=== PATIENT | female | born 1985 | race Caucasian/White ===

== ENCOUNTER 2017-04-19 11:39 | Emergency (ER) | payer BC, MEDICAID ==
[2017-04-19 11:46] VITALS: BP 129/99
[2017-04-19] MEDS ORDERED: Sodium Chloride 0.9% 1,000 ML IV ONE (12:18)
[2017-04-19] MEDS ORDERED: Sodium Chloride 0.9% 10 ML Syringe FLUSH PRN (12:19)
[2017-04-19] MEDS ORDERED: Ondansetron 4 MG/2 ML SDV IVPUSH ONE (12:19)
[2017-04-19] MEDS ORDERED: Iopamidol 612 MG/ML 150 ML Bottle IVPUSH ONE (12:24)
[2017-04-19] MEDS ORDERED: Sodium Chloride 0.9% 10 ML Syringe FLUSH ONE (12:24)
[2017-04-19] MEDS ORDERED: Diatrizoate Meglumine/Diatrizoate Sodium 37% 120 ML Bottle PO ONE (12:24)
--- NOTE | 2017-04-19 12:28 | EDM.PDOC ---
ED HPI GENERAL MEDICAL PROBLEM - General Chief Complaint: Genitourinary Problem Stated Complaint: POSS. UTI Time Seen by Provider: 04/19/17 12:22 Source of Information: Reports: Patient History Limitations: Reports: No Limitations - History of Present Illness INITIAL COMMENTS - FREE TEXT/NARRATIVE: 32-year-old female presents for evaluation and treatment of a possible urinary tract infection. Patient reports she has been feeling ill since March 31. Current symptoms include feeling feverish, decreased appetite, nausea, malaise, constipation and abdominal pain. Patient reports that her entire abdomen is involved and states it goes from her upper abdomen down into her vagina. She states that she has felt feverish and chilled but has not taken her temperature. Reports the nausea is worse with laying flat. Patient reports that she saw her primary care provider, Kayce Gamble, recently. She was placed on a seven-day course of Macrobid. She took this to completion. She states she had trouble urinating while on the Macrobid. Patient has an extensive past medical history of kidney problems, chronic regional pain syndrome and problems with her neck, back, shoulders and hips. She was seeing Dr. Marvin urology for her kidney problems. She has now since been seeing Dr. Palafox. Next visit in April 2016. Abdomen Pain Score (Numeric/FACES): 6 - Related Data Allergies Allergy/AdvReac Type Severity Reaction Status Date / Time diphenhydramine HCl Allergy Other Verified 08/10/15 16:33 [From Benadryl] orphenadrine Allergy Other Verified 08/10/15 16:33 propoxyphene napsylate Allergy Other Verified 08/10/15 16:33 [From Darvocet-N] valdecoxib Allergy Other Verified 08/10/15 16:33 acetaminophen AdvReac Other Verified 08/10/15 16:33 [From Darvocet-N] Home Meds: Home Meds Lidocaine 0.5% [Xylocaine-MPF 0.5%] 2 applic PO DAILY 04/19/17 [History] Past Medical History Cardiovascular History: Reports: Other (See Below) Other Cardiovascular History: history of mitral valve issues, chest pain 16 years ago. 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 [employer]LEY [employer]Y History: Reports: Musculoskeletal History: Reports: Other (See Below) Other Musculoskeletal History: CRPS Other Neuro History: tremors with anesthesia Psychiatric History: Reports: Anxiety Hematologic History: Reports: Blood Transfusion(s) Other Hematologic History: blood transfusion 14 years ago due to retained placenta - Past Surgical History HEENT Surgical History: Reports: Tonsillectomy Female Surgical History: Reports: Tubal Ligation, Ureteral Stent Musculoskeletal Surgical History: Reports: Arthroscopic Knee Social & Family History - Tobacco Use Smoking Status *Q: Current Every Day Smoker Years of Tobacco use: 17 Packs/Tins Daily: 0.5 Second Hand Smoke Exposure: No - Caffeine Use Caffeine Use: Reports: Coffee, Soda, Tea - Alcohol Use Days Per Week of Alcohol Use: 0 Number of Drinks Per Day: 0 Total Drinks Per Week: 0 - Recreational Drug Use Recreational Drug Use: No - Living Situation & Occupation Living situation: Reports: , with Family ED ROS GENERAL - Review of Systems Review Of Systems: See Below Constitutional: Reports: Fever, Chills, Malaise, Decreased Appetite GI/Abdominal: Reports: Abdominal Pain (entire abdomen), Constipation, Nausea. Denies: Diarrhea, Vomiting : Denies: Dysuria, Hematuria Musculoskeletal: Reports: Neck Pain (chronic), Shoulder Pain (chronic), Back Pain (chronic), Other (hip pain chronic) ED EXAM, RENAL/ - Physical Exam Exam: See Below Exam Limited By: No Limitations General Appearance: Alert, WD/WN, No Apparent Distress Ears: Normal External Exam Nose: Normal Inspection Throat/Mouth: Normal Inspection, Normal Lips, Normal Voice, No Airway Compromise Respiratory/Chest: No Respiratory Distress, Lungs Clear, Normal Breath Sounds Cardiovascular: Normal Peripheral Pulses, Regular Rate, Rhythm, No Murmur GI/Abdominal: Normal Bowel Sounds, Soft, Non-Tender, No Organomegaly, No Distention Neurological: Alert, Oriented, Normal Cognition Psychiatric: Normal Mood, Flat Affect Skin Exam: Warm, Dry, Normal Color Course - Vital Signs Last Recorded V/S: Last Vital Signs Temp 37.7 C 04/19/17 11:43 Pulse 118 H 04/19/17 11:43 Resp 20 04/19/17 11:43 BP 129/99 H 04/19/17 11:43 Pulse Ox 99 04/19/17 11:43 - Orders/Labs/Meds Labs: Laboratory Tests 04/19/17 04/19/17 04/19/17 Range/Units 12:40 12:40 12:40 WBC 5.75 (3.98-10.04) K/mm3 RBC 5.06 (3.98-5.22) M/mm3 Hgb 15.0 (11.2-15.7) gm/L Hct 45.7 H (34.1-44.9) % MCV 90.3 (79.4-94.8) fl MCH 29.6 (25.6-32.2) pg MCHC 32.8 (32.2-35.5) g/dl RDW Std Deviation 42.7 (36.4-46.3) fL Plt Count 290 (182-369) K/mm3 MPV 10.0 (9.4-12.3) fl Neutrophils % (Manual) 50 (40-60) % Band Neutrophils % 0 (0-10) % Lymphocytes % (Manual) 46 H (20-40) % Atypical Lymphs % 0 % Monocytes % (Manual) 4 (2-10) % Eosinophils % (Manual) 0 L (0.7-5.8) % Basophils % (Manual) 0 L (0.1-1.2) Platelet Estimate Adequate RBC Morph Comment Normal Sodium 140 (136-145) mEq/L Potassium 3.6 (3.5-5.1) mEq/L Chloride 104 (98-107) mEq/L Carbon Dioxide 27 (21-32) mEq/L Anion Gap 12.6 (5-15) BUN 10 (7-18) mg/dL Creatinine 0.9 (0.55-1.02) mg/dL Est Cr Clr Drug Dosing 85.65 mL/min Estimated GFR (MDRD) > 60 (>60) mL/min BUN/Creatinine Ratio 11.1 L (14-18) Glucose 99 (74-106) mg/dL Calcium 9.3 (8.5-10.1) mg/dL Total Bilirubin 0.6 (0.2-1.0) mg/dL AST 18 (15-37) U/L ALT 28 (14-59) U/L Alkaline Phosphatase 55 (46-116) U/L C-Reactive Protein < 0.2 (<1.0) mg/dL Total Protein 7.5 (6.4-8.2) g/dl Albumin 4.3 (3.4-5.0) g/dl Globulin 3.2 gm/dL Albumin/Globulin Ratio 1.3 (1-2) Lipase 181 (73-393) U/L Urine Color Yellow (Yellow) Urine Appearance Clear (Clear) Urine pH 6.5 (5.0-8.0) Ur Specific [place] 1.020 (1.005-1.030) Urine Protein Negative (Negative) Urine Glucose (UA) Negative (Negative) Urine Ketones Negative (Negative) Urine Occult Blood Negative (Negative) Urine Nitrite Negative (Negative) Urine Bilirubin Negative (Negative) Urine Urobilinogen 0.2 (0.2-1.0) Ur Leukocyte Esterase Trace H (Negative) Urine RBC Not seen (0-5) /hpf Urine WBC 0-5 (0-5) /hpf Ur Epithelial Cells 0-5 (0-5) /hpf Urine Bacteria Few (FEW) /hpf Urine Mucus Few (FEW) /hpf Meds: Medications Discontinued Medications Generic Name Dose Route Start Last Admin Trade Name Dinhq PRN Reason Stop Dose Admin Diatrizoate Meglum/Diatrizoate Sod 90 ml 04/19/17 12:24 04/19/17 13:35 Gastrografin 37% PO 04/19/17 12:25 90 ml ONETIME ONE Administration Sodium Chloride 1,000 mls @ 999 mls/hr 04/19/17 12:18 04/19/17 12:43 Normal Saline IV 04/19/17 13:18 999 mls/hr ONETIME ONE Administration Iopamidol 125 ml 04/19/17 12:24 04/19/17 13:35 Isovue-300 (61%) IVPUSH 04/19/17 12:25 125 ml ONETIME ONE Administration Ondansetron HCl 4 mg 04/19/17 12:19 04/19/17 12:43 Zofran IVPUSH 04/19/17 12:20 4 mg ONETIME ONE Administration Sodium Chloride 10 ml 04/19/17 12:19 04/19/17 13:35 Saline Flush FLUSH 10 ml ASDIRECTED PRN Administration Keep Vein Open Sodium Chloride 10 ml 04/19/17 12:24 04/19/17 12:44 Saline Flush FLUSH 04/19/17 12:25 10 ml ONETIME ONE Administration - Radiology Interpretation Free Text/Narrative:: CT abdomen and pelvis Technique: Multiple axial sections were obtained from above the dome of the diaphragm inferiorly through the pubic symphysis. Intravenous and oral contrast was utilized. Delayed images were obtained through the bladder. Comparison: Prior CT abdomen and pelvis exam of 05/31/15 which was performed as a hematuria protocol study. Findings: Visualized lung bases are clear. Liver shows no focal parenchymal abnormality. Spleen appears within normal limits. Adrenal glands show no nodule. Kidneys show symmetric contrast enhancement without hydronephrosis or mass. Pancreas appears within normal limits. Aorta shows no aneurysmal dilatation. No retroperitoneal adenopathy or mesenteric abnormalities are seen. Gallbladder shows no calcified gallstones. Appendix is seen which is normal. No pelvic mass or adenopathy is seen. Delayed images shows contrast within the bladder. Slight increased stool is noted within the colon. No bowel dilatation is seen. No free fluid or inflammatory change is seen. Bone window settings were reviewed which appear within normal limits for the patient's age. Impression: 1. Slight increased stool within the colon. 2. Other normal findings as noted above. - Re-Assessments/Exams Free Text/Narrative Re-Assessment/Exam: 04/19/17 15:00 I reviewed the labs and CT results with the patient. Given her pain extends into her vagina I offered a pelvic exam and STD testing, patient declined. She was offered pain medication throughout her ER stay and she declined. I will discharge her home at this time. Discharge instructions as documented. Departure - Departure Time of Disposition: 15:02 Disposition: Home, Self-Care 01 Condition: Fair Clinical Impression: Constipation Qualifiers: Constipation type: slow transit constipation Qualified Code(s): K59.01 - Slow transit constipation - Discharge Information Instructions: Constipation, Adult Referrals: Cat Gamble STILL [facility]NER [Primary Care Provider] - Forms: ED Department Discharge Additional Instructions: Rx for topical phenergran to be filled at [facility],. make sure you are drinking plenty of fluids. If you do not have a large bowel movement from the contrast, purchased a bottle make citrate. These are available [id number]. Drink half the bottle. If you do not have results drink the second half the bottle about 12 hours later. Recommend starting [id number] probiotic daily. Recommended starting MiraLAX daily. Follow-up with your primary care provider for recheck of your symptoms next week. Please return to the ER if her symptoms change or worsen.
--- NOTE | 2017-04-19 14:06 | CT ---
CT abdomen and pelvis Technique: Multiple axial sections were obtained from above the dome of the diaphragm inferiorly through the pubic symphysis. Intravenous and oral contrast was utilized. Delayed images were obtained through the bladder. Comparison: Prior CT abdomen and pelvis exam of 05/31/15 which was performed as a hematuria protocol study. Findings: Visualized lung bases are clear. Liver shows no focal parenchymal abnormality. Spleen appears within normal limits. Adrenal glands show no nodule. Kidneys show symmetric contrast enhancement without hydronephrosis or mass. Pancreas appears within normal limits. Aorta shows no aneurysmal dilatation. No retroperitoneal adenopathy or mesenteric abnormalities are seen. Gallbladder shows no calcified gallstones. Appendix is seen which is normal. No pelvic mass or adenopathy is seen. Delayed images shows contrast within the bladder. Slight increased stool is noted within the colon. No bowel dilatation is seen. No free fluid or inflammatory change is seen. Bone window settings were reviewed which appear within normal limits for the patient's age. Impression: 1. Slight increased stool within the colon. 2. Other normal findings as noted above. Diagnostic code #2
== END 2017-04-19 15:15 | disposition home or self-care (01) ==
LOC: JD.ED 11:39
DX: K59.01 Slow transit constipation (principal); Z88.6 Allergy status to analgesic agent; Z88.8 Allergy status to other drugs, medicaments and biological substances; Z87.440 Personal history of urinary (tract) infections
CPT/HCPCS: 36415; 74177; 80053; 81001; 83690; 85025; 86140; 87086; 96361; 96374; 99284; J2405; J7040; J7050; Q9963; Q9967

== ENCOUNTER 2018-07-31 20:29 | Emergency (ER) | payer BC, MEDICAID ==
[2018-07-31 20:44] VITALS: BP 138/99
[2018-07-31] MEDS ORDERED: Lidocaine 1% 10 ML MDV INJECT ONE (20:58)
--- NOTE | 2018-07-31 21:36 | EDM.PDOC ---
ED HPI GENERAL MEDICAL PROBLEM - General Chief Complaint: Laceration Stated Complaint: HAND LACERATION RIGHT HAND Time Seen by Provider: 07/31/18 20:55 Source of Information: Reports: Patient History Limitations: Reports: No Limitations - History of Present Illness INITIAL COMMENTS - FREE TEXT/NARRATIVE: The patient presents with a laceration to the right hand. She was using an apple corer and it broke and she got cut at the base of her right thumb. She has pain but she has good sensation and capillary refill. She has good tendon strength. Onset: Sudden Duration: Minutes: Location: Reports: Upper Extremity, Right (hand) Quality: Reports: Sharp Severity: Moderate Improves with: Reports: Immobilization Worsens with: Reports: Movement Context: Reports: Trauma (cut by an apple corer) Associated Symptoms: Reports: No Other Symptoms Right Hand Pain Score (Numeric/FACES): 6 - Related Data Allergies Allergy/AdvReac Type Severity Reaction Status Date / Time diphenhydramine HCl Allergy Other Verified 08/10/15 16:33 [From Benadryl] orphenadrine Allergy Other Verified 08/10/15 16:33 propoxyphene napsylate Allergy Other Verified 08/10/15 16:33 [From Darvocet-N] valdecoxib Allergy Other Verified 08/10/15 16:33 acetaminophen AdvReac Other Verified 08/10/15 16:33 [From Darvocet-N] Home Meds: Home Meds Lidocaine [Lidoderm] 5 percent TRDERM DAILY 07/31/18 [History] Past Medical History Cardiovascular History: Reports: Other (See Below) Other Cardiovascular History: history of mitral valve issues, chest pain 16 years ago. 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 [employer] TE[employer]ER History: Reports: Musculoskeletal History: Reports: Other (See Below) Other Musculoskeletal History: CRPS Other Neuro History: tremors with anesthesia Psychiatric History: Reports: Anxiety Hematologic History: Reports: Blood Transfusion(s) Other Hematologic History: blood transfusion 14 years ago due to retained placenta - Past Surgical History HEENT Surgical History: Reports: Tonsillectomy Female Surgical History: Reports: Tubal Ligation, Ureteral Stent Musculoskeletal Surgical History: Reports: Arthroscopic Knee Social & Family History - Tobacco Use Smoking Status *Q: Current Every Day Smoker Years of Tobacco use: 21 Packs/Tins Daily: 0.5 - Caffeine Use Caffeine Use: Reports: Soda - Recreational Drug Use Recreational Drug Use: No - Living Situation & Occupation Living situation: Reports: , with Family ED ROS GENERAL - Review of Systems Review Of Systems: See Below Constitutional: Reports: No Symptoms HEENT: Reports: No Symptoms Respiratory: Reports: No Symptoms Cardiovascular: Reports: No Symptoms Endocrine: Reports: No Symptoms GI/Abdominal: Reports: No Symptoms : Reports: No Symptoms Musculoskeletal: Reports: Other (2cm laceration to the right hand at the base of the thumb) ED EXAM, SKIN/RASH Exam: See Below Exam Limited By: No Limitations General Appearance: Alert, No Apparent Distress Ears: Normal External Exam Nose: Normal Inspection Head: Atraumatic, Normocephalic Neck: Normal Inspection Respiratory/Chest: No Respiratory Distress Extremities: Other (2cm laceration of the right hand at the base of the right thumb. Good sensation and capillary refill distally.) ED SKIN PROCEDURES - Laceration/Wound Repair Right Hand Lac/Wound length In cm: 2 Appearance: Superficial, Linear Distal NVT: Neuro & Vascular Intact, No Tendon Injury Anesthetic Type: Local Local Anesthesia - Lidocaine (Xylocaine): 1% Plain Local Anesthetic Volume: 3cc Exploration/Debridement/Repair: Wound Explored, In a Bloodless Field, Explored to Base Closed with: Sutures Suture Size: 4-0 # of Sutures: 3 Suture Type: Nylon, Interrupted, Simple Tetanus Status Addressed: Yes Complications: No Course - Vital Signs Last Recorded V/S: Last Vital Signs Temp 97.7 F 07/31/18 20:40 Pulse 82 07/31/18 20:40 Resp 16 07/31/18 20:40 BP 138/99 H 07/31/18 20:40 Pulse Ox 98 07/31/18 20:40 - Orders/Labs/Meds Meds: Medications Discontinued Medications Generic Name Dose Route Start Last Admin Trade Name Freq PRN Reason Stop Dose Admin Lidocaine HCl 10 ml 07/31/18 20:58 07/31/18 21:05 Xylocaine 1% INJECT 07/31/18 20:59 10 ml ONETIME ONE Administration - Re-Assessments/Exams Free Text/Narrative Re-Assessment/Exam: 07/31/18 21:38 I sutured the laceration closed. 07/31/18 21:40 The patient does not think her tetanus is up to date and she does not want one. Departure - Departure Time of Disposition: 21:45 Disposition: Home, Self-Care 01 Condition: Good Clinical Impression: Laceration of right hand Qualifiers: Encounter type: initial encounter Foreign body presence: without foreign body Qualified Code(s): S61.411A - Laceration without foreign body of right hand, initial encounter - Discharge Information *PRESCRIPTION DRUG MONITORING PROGRAM REVIEWED*: Not Applicable *COPY OF PRESCRIPTION DRUG MONITORING REPORT IN PATIENT JOYCE: Not Applicable Referrals: Eleanor Roman PA-C [Primary Care Provider] - Forms: ED Department Discharge Additional Instructions: Soak your hand in warm soapy water 2 times per day and apply antibiotic after. Have the sutures removed in 1 week. Look for any signs of infection such as redness, swelling, more pain or drainage. Please return or see your doctor if you see any of these signs. You could have an infection.
== END 2018-07-31 21:48 | disposition home or self-care (01) ==
LOC: JD.ED 20:29
DX: S61.411A Laceration without foreign body of right hand, initial encounter (principal); F17.210 Nicotine dependence, cigarettes, uncomplicated; Z88.8 Allergy status to other drugs, medicaments and biological substances; W26.8XXA Contact with other sharp object(s), not elsewhere classified, initial encounter
CPT/HCPCS: 12001; 99282; J2001

== ENCOUNTER 2019-05-11 19:43 | Emergency (ER) | payer BC, MEDICAID ==
[2019-05-11 19:55] VITALS: BP 142/101; PULSE 111
[2019-05-11] MEDS ORDERED: Sodium Chloride 0.9% 10 ML Syringe FLUSH PRN (19:58)
--- NOTE | 2019-05-11 20:12 | EDM.PDOC ---
ED HPI GENERAL MEDICAL PROBLEM - General Chief Complaint: Genitourinary Problem Stated Complaint: POSS KIDNEY PROBLEM Time Seen by Provider: 05/11/19 19:51 Source of Information: Reports: Patient, RN Notes Reviewed History Limitations: Reports: No Limitations - History of Present Illness INITIAL COMMENTS - FREE TEXT/NARRATIVE: Patient is a 34-year-old female who presents to the ED for the evaluation of left kidney pain. Patient notes she has been dealing with a viral upper respiratory illness for a few weeks, she states that symptoms started right around [place] time. She notes a fever, body aches, cough being present. She states that these initially got a little bit better, however she also developed some kidney pain, she states that this started bothering her around 2 weeks ago and now she states that whenever she coughs she pees a little bit. She is having increased nausea as well, with not a great appetite. She states that she ate maybe 6 peanut butter crackers today. 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 She has been taking some vitamin C and other herbal supplements for management however this is not provided much relief. Patient does note a history of asthma as well. Left Flank Pain Score (Numeric/FACES): 9 - Related Data Allergies Allergy/AdvReac Type Severity Reaction Status Date / Time diphenhydramine HCl Allergy Other Verified 05/11/19 19:53 [From Benadryl] orphenadrine Allergy Other Verified 05/11/19 19:53 propoxyphene napsylate Allergy Other Verified 05/11/19 19:53 [From Darvocet-N] valdecoxib Allergy Other Verified 05/11/19 19:53 acetaminophen AdvReac Other Verified 05/11/19 19:53 [From Darvocet-N] Home Meds: Home Meds D-Methorphan/PE/Acetaminophen [Day Time Cold-Flu Softgel] 1 each PO ASDIRECTED 05/11/19 [History] Fluconazole [Diflucan] 150 mg PO ONETIME #1 tab 05/11/19 [Rx] Levofloxacin 750 mg PO DAILY #10 tablet 05/11/19 [Rx] Past Medical History HEENT History: Reports: Impaired Vision Other HEENT History: Wears glasses Cardiovascular History: Reports: Other (See Below) Other Cardiovascular History: history of mitral valve issues, chest pain 16 years ago. 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: Musculoskeletal History: Reports: Other (See Below) Other Musculoskeletal History: CRPS Neurological History: Reports: Concussion, Seizure Other Neuro History: tremors with anesthesia Psychiatric History: Reports: Anxiety Hematologic History: Reports: Blood Transfusion(s) Other Hematologic History: blood transfusion 14 years ago due to retained placenta - Past Surgical History HEENT Surgical History: Reports: Tonsillectomy GI Surgical History: Reports: Colonoscopy, Polypectomy Female Surgical History: Reports: Tubal Ligation, Ureteral Stent Musculoskeletal Surgical History: Reports: Arthroscopic Knee, Shoulder Surgery Social & Family History - Tobacco Use Smoking Status *Q: Current Every Day Smoker Years of Tobacco use: 15 Packs/Tins Daily: 0.5 - Caffeine Use Caffeine Use: Reports: Soda - Recreational Drug Use Recreational Drug Use: No - Living Situation & Occupation Living situation: Reports: , with Family ED ROS GENERAL - Review of Systems Review Of Systems: See Below Constitutional: Reports: Fever, Chills, Malaise, Decreased Appetite Respiratory: Reports: Cough. Denies: Shortness of Breath, Sputum Cardiovascular: Denies: Chest Pain GI/Abdominal: Reports: Nausea. Denies: Abdominal Pain, Constipation, Diarrhea, Vomiting : Reports: Flank Pain (Left side kidney pain), Frequency, Incontinence, Urgency. Denies: Discharge, Dysuria ED EXAM, RENAL/ - Physical Exam Exam: See Below Exam Limited By: No Limitations General Appearance: Alert, WD/WN, No Apparent Distress Eye Exam: Bilateral Eye: EOMI, Normal Inspection, PERRL Ears: Normal External Exam Nose: Normal Inspection Throat/Mouth: Normal Inspection, Normal Lips, Normal Teeth, Normal Gums, Normal Oropharynx, Normal Voice, No Airway Compromise Head: Atraumatic, Normocephalic Neck: Normal Inspection Respiratory/Chest: No Respiratory Distress, Lungs Clear, No Accessory Muscle Use , Chest Non-Tender, Decreased Breath Sounds (diffuse bilaterally), Prolonged Expiration Cardiovascular: Regular Rate, Rhythm, No Murmur GI/Abdominal: Normal Bowel Sounds, Soft, Non-Tender, No Distention, No Mass Extremities: Normal Inspection, Normal Capillary Refill Neurological: Alert, Oriented, Normal Cognition, No Motor/Sensory Deficits Psychiatric: Normal Affect, Normal Mood Skin Exam: Warm, Dry, Intact, Normal Color, No Rash EKG INTERPRETATION EKG Date: 05/11/19 Time: 21:24 Rhythm: NSR Rate (Beats/Min): 83 [place]rens: Normal P-Wave: Present QRS: Normal ST-T: Normal QT: Normal Comparison: NA - No Prior EKG EKG Interpretation Comments: Reviewed with Dr. Molina, no acute ischemic change noted. Course - Vital Signs Last Recorded V/S: Last Vital Signs Temp 100.5 F 05/11/19 19:54 Pulse 111 H 05/11/19 19:54 Resp 18 05/11/19 19:54 BP 142/101 H 05/11/19 19:54 Pulse Ox 97 05/11/19 19:54 - Orders/Labs/Meds Orders: Active Orders 24 hr Category Date Time Status EKG Documentation Completion [RC] STAT Care 05/11/19 21:07 Ordered Peripheral IV Care [RC] . DIRECTED Care 05/11/19 19:58 Ordered Abdomen Pelvis wo Cont [CT] Stat Exams 05/11/19 21:06 Ordered CULTURE URINE [RM] Routine Lab 05/11/19 19:59 Stop Req Potassium Chloride [KCl 10 MEQ in Water 100 ML] 10 meq Med 05/11/19 21:15 Ordered Premix Bag 1 bag IV Q1H Sodium Chloride 0.9% [Saline Flush] Med 05/11/19 19:58 Ordered 10 ml FLUSH ASDIRECTED PRN Peripheral IV Insertion Adult [OM.PC] Stat Oth 05/11/19 19:58 Ordered Medication Orders Potassium Chloride 10 meq/ (Premix) 100 mls @ 100 mls/hr IV Q1H CHUY Stop: 05/12/19 01:14 Sodium Chloride (Saline Flush) 10 ml FLUSH ASDIRECTED PRN PRN Reason: Keep Vein Open Last Admin: 05/11/19 20:47 Dose: 10 ml Labs: Laboratory Tests 05/11/19 05/11/19 05/11/19 Range/Units 19:59 20:24 20:24 WBC 14.80 H (3.98-10.04) K/mm3 RBC 4.33 (3.98-5.22) M/mm3 Hgb 12.8 D (11.2-15.7) gm/dl Hct 38.1 (34.1-44.9) % MCV 88.0 (79.4-94.8) fl MCH 29.6 (25.6-32.2) pg MCHC 33.6 (32.2-35.5) g/dl RDW Std Deviation 41.2 (36.4-46.3) fL Plt Count 336 (182-369) K/mm3 MPV 10.4 (9.4-12.3) fl Neutrophils % (Manual) 71 H (40-60) % Band Neutrophils % 0 (0-10) % Lymphocytes % (Manual) 17 L (20-40) % Atypical Lymphs % 0 % Monocytes % (Manual) 10 (2-10) % Eosinophils % (Manual) 0 L (0.7-5.8) % Basophils % (Manual) 2 H (0.1-1.2) Platelet Estimate Adequate RBC Morph Comment Normal Sodium 141 (136-145) mEq/L Potassium 2.4 L* (3.5-5.1) mEq/L Chloride 101 (98-107) mEq/L Carbon Dioxide 27 (21-32) mEq/L Anion Gap 15.4 H (5-15) BUN 5 L (7-18) mg/dL Creatinine 0.9 (0.55-1.02) mg/dL Est Cr Clr Drug Dosing 83.25 mL/min Estimated GFR (MDRD) > 60 (>60) mL/min BUN/Creatinine Ratio 5.6 L (14-18) Glucose 104 (74-106) mg/dL Calcium 8.7 (8.5-10.1) mg/dL Magnesium (1.8-2.4) mg/dl Total Bilirubin 0.7 (0.2-1.0) mg/dL AST 12 L (15-37) U/L ALT 26 (14-59) U/L Alkaline Phosphatase 71 (46-116) U/L Total Protein 7.0 (6.4-8.2) g/dl Albumin 3.1 L (3.4-5.0) g/dl Globulin 3.9 gm/dL Albumin/Globulin Ratio 0.8 L (1-2) Urine Color Yellow (Yellow) Urine Appearance Slt cloudy H (Clear) Urine pH 6.5 (5.0-8.0) Ur Specific [place] 1.015 (1.005-1.030) Urine Protein 1+ H (Negative) Urine Glucose (UA) Negative (Negative) Urine Ketones 1+ H (Negative) Urine Occult Blood Trace-lysed H (Negative) Urine Nitrite Negative (Negative) Urine Bilirubin 1+ H (Negative) Urine Urobilinogen 4.0 H (0.2-1.0) Ur Leukocyte Esterase 2+ H (Negative) Urine RBC 5-10 H (0-5) /hpf Urine WBC 30-40 H (0-5) /hpf Urine WBC Clumps Occasional (NOT SEEN) /hpf Ur Squamous Epith Cells 5-10 H (0-5) /hpf Urine Bacteria Few (FEW) /hpf Urine Mucus Few (FEW) /hpf 05/11/19 Range/Units 20:24 WBC (3.98-10.04) K/mm3 RBC (3.98-5.22) M/mm3 Hgb (11.2-15.7) gm/dl Hct (34.1-44.9) % MCV (79.4-94.8) fl MCH (25.6-32.2) pg MCHC (32.2-35.5) g/dl RDW Std Deviation (36.4-46.3) fL Plt Count (182-369) K/mm3 MPV (9.4-12.3) fl Neutrophils % (Manual) (40-60) % Band Neutrophils % (0-10) % Lymphocytes % (Manual) (20-40) % Atypical Lymphs % % Monocytes % (Manual) (2-10) % Eosinophils % (Manual) (0.7-5.8) % Basophils % (Manual) (0.1-1.2) Platelet Estimate RBC Morph Comment Sodium (136-145) mEq/L Potassium (3.5-5.1) mEq/L Chloride (98-107) mEq/L Carbon Dioxide (21-32) mEq/L Anion Gap (5-15) BUN (7-18) mg/dL Creatinine (0.55-1.02) mg/dL Est Cr Clr Drug Dosing mL/min Estimated GFR (MDRD) (>60) mL/min BUN/Creatinine Ratio (14-18) Glucose (74-106) mg/dL Calcium (8.5-10.1) mg/dL Magnesium 1.8 (1.8-2.4) mg/dl Total Bilirubin (0.2-1.0) mg/dL AST (15-37) U/L ALT (14-59) U/L Alkaline Phosphatase (46-116) U/L Total Protein (6.4-8.2) g/dl Albumin (3.4-5.0) g/dl Globulin gm/dL Albumin/Globulin Ratio (1-2) Urine Color (Yellow) Urine Appearance (Clear) Urine pH (5.0-8.0) Ur Specific [place] (1.005-1.030) Urine Protein (Negative) Urine Glucose (UA) (Negative) Urine Ketones (Negative) Urine Occult Blood (Negative) Urine Nitrite (Negative) Urine Bilirubin (Negative) Urine Urobilinogen (0.2-1.0) Ur Leukocyte Esterase (Negative) Urine RBC (0-5) /hpf Urine WBC (0-5) /hpf Urine WBC Clumps (NOT SEEN) /hpf Ur Squamous Epith Cells (0-5) /hpf Urine Bacteria (FEW) /hpf Urine Mucus (FEW) /hpf Meds: Medications Generic Name Dose Route Start Last Admin Trade Name Freq PRN Reason Stop Dose Admin Potassium Chloride 10 meq/ 100 mls @ 100 mls/hr 05/11/19 21:15 Premix IV 05/12/19 01:14 Q1H CHUY Sodium Chloride 10 ml 05/11/19 19:58 05/11/19 20:47 Saline Flush FLUSH 10 ml ASDIRECTED PRN Administration Keep Vein Open Discontinued Medications Generic Name Dose Route Start Last Admin Trade Name Freq PRN Reason Stop Dose Admin Ketorolac Tromethamine 30 mg 05/11/19 20:41 05/11/19 20:46 Toradol IVPUSH 05/11/19 20:42 30 mg ONETIME ONE Administration Levofloxacin 750 mg 05/11/19 21:16 05/11/19 21:22 Levaquin PO 05/11/19 21:17 750 mg ONETIME ONE Administration Potassium Chloride 40 meq 05/11/19 21:06 05/11/19 21:22 Klor-Con M20 PO 05/11/19 21:07 40 meq ONETIME ONE Administration - Re-Assessments/Exams Free Text/Narrative Re-Assessment/Exam: 05/11/19 20:11 Patient presents to the ED for the evaluation of left kidney pain. She is mildly febrile at time of exam, 100.5 F. IV will be placed with a urinalysis to be obtained, influenza swab, CBC and CMP for initial management. 05/11/19 21:32 [place] evaluation is back, urine shows 2+ leukocyte esterase, 5-10 RBCs, 30-40 white blood cells, by definition I do believe the patient suffering from pyelonephritis, she also has a metabolic panel that was impressive for a low potassium at 2.4. She will be given 40 mEq p.o. potassium, she can still tolerate fluids at this time. She will be given 750 mg oral Levaquin as well for management of her pyelonephritis. I did order an EKG, and an abdomen pelvis CT without contrast for further evaluation of her pyelonephritis. I do not believe the patient is toxic enough at this time to need hospital admission. I was contemplated giving her IV potassium as well, however I might hold off on this and send her home with another 40 mEq of potassium to take in the morning for supplementation and have her eat some high potassium foods. Of note patient's white blood cell count is mildly elevated as well at 14.8. Will re-assess after the oral meds have been given. 05/11/19 21:56 EKG was obtained, and demonstrates no acute abnormalities. Patient's magnesium was also obtained and is within normal limits. CT does demonstrate pyelonephritis, on the right more so than the left. This does not change my management suggestion, I will reassess and see how the patient did with the oral medications. 05/11/19 22:33 Patient tolerated the p.o. meds well, she will be discharged home, with 40 mEq more of potassium to take tomorrow morning, a prescription for 10 days of Levaquin, and 1 tablet of Diflucan as she states that she usually gets a yeast infection while taking antibiotics. Departure - Departure Time of Disposition: 22:35 Disposition: Home, Self-Care 01 Condition: Fair Clinical Impression: Pyelonephritis - Discharge Information *PRESCRIPTION DRUG MONITORING PROGRAM REVIEWED*: No *COPY OF PRESCRIPTION DRUG MONITORING REPORT IN PATIENT JOYCE: No Instructions: Pyelonephritis, Adult Referrals: Jessie,Eleanor L, PA-C [Primary Care Provider] - Forms: ED Department Discharge Additional Instructions: You have been evaluated in the ED for your urinary symptoms. Your urinalysis was consistent with a pyelonephritis. Your urine was sent for culture, and you will be notified if you should need a change in your antibiotic. You may take AZO for urinary pain relief. This is available over the counter, and can be attained at any retail store like [employer] or any pharmacy. Please be aware that this medication will make your urine turn orange. You have been given a prescription for Levaquin 750 mg 1 tablet daily for 10 days. This has been electronically sent to the [facility] pharmacy located on [address]. You were given a dose of oral potassium, to take tomorrow morning, recommend that you follow-up within a few days time to have your levels redrawn to make sure that your potassium is back at a normal range. You were also given 1 dose of Diflucan, as you stated that you commonly get yeast infections with antibiotic treatment. Please take as directed. Please increase your oral fluid intake and try to stay adequately hydrated. Please return to the ED if your symptoms change or worsen. Sepsis Event Note - Evaluation Sepsis Screening Result: No Definite Risk - Focused Exam Vital Signs: Vital Signs Temp Pulse Resp BP Pulse Ox 05/11/19 19:54 100.5 F 111 H 18 142/101 H 97 Date Exam was Performed: 05/11/19 Time Exam was Performed: 22:26 - My Orders Last 24 Hours: My Active Orders 05/11/19 19:58 Peripheral IV Care [RC] . DIRECTED Sodium Chloride 0.9% [Saline Flush] 10 ml FLUSH ASDIRECTED PRN Peripheral IV Insertion Adult [OM.PC] Stat 05/11/19 19:59 CULTURE URINE [RM] Routine 05/11/19 21:06 Abdomen Pelvis wo Cont [CT] Stat 05/11/19 21:07 EKG Documentation Completion [RC] STAT 05/11/19 21:15 Potassium Chloride [KCl 10 MEQ in Water 100 ML] 10 meq Premix Bag 1 bag IV Q1H - Assessment/Plan Last 24 Hours: My Active Orders 05/11/19 19:58 Peripheral IV Care [RC] . DIRECTED Sodium Chloride 0.9% [Saline Flush] 10 ml FLUSH ASDIRECTED PRN Peripheral IV Insertion Adult [OM.PC] Stat 05/11/19 19:59 CULTURE URINE [RM] Routine 05/11/19 21:06 Abdomen Pelvis wo Cont [CT] Stat 05/11/19 21:07 EKG Documentation Completion [RC] STAT 05/11/19 21:15 Potassium Chloride [KCl 10 MEQ in Water 100 ML] 10 meq Premix Bag 1 bag IV Q1H
[2019-05-11] MEDS ORDERED: Ketorolac 30 MG/ML SDV IVPUSH ONE (20:41)
[2019-05-11] MEDS ORDERED: Potassium Chloride 20 MEQ Tab.ER PO ONE ×2 (21:06→22:37)
[2019-05-11] MEDS ORDERED: Levofloxacin 750 MG Tab PO ONE (21:16)
[2019-05-11] MEDS: Potassium Chloride 10 MEQ in Premix Bag 1 BAG IV SCH ×2 (23:35→23:36)
--- NOTE | 2019-05-12 07:51 | CT ---
CT abdomen and pelvis Technique: Multiple axial sections were obtained from slightly below the top of the liver inferiorly through the pubic symphysis. Intravenous and oral contrast not utilized. Study has been performed as a ureteral stone protocol. Comparison: Previous noncontrast CT stone protocol exam of 05/01/15. Findings: Right kidney shows slight haziness around the renal cortex. This is nonspecific but could be seen with pyelonephritis. Kidneys show no abnormal calcifications. No ureteral dilatation or ureteral calculi are appreciated. Other findings: Visualized lung bases show nothing acute. Noncontrast appearance of the liver shows no focal abnormality. Spleen appears within normal limits. Adrenal glands show no nodule. Pancreas shows no discrete abnormality. Aorta shows no aneurysm. Appendix is seen which is normal in size. No pelvic mass or adenopathy is identified. Slight increased stool within the colon is noted. Bone window settings were reviewed which appear within normal limits for the patient's age. Impression: 1. Minimal haziness around the right kidney. Difficult to exclude pyelonephritis. Please correlate with laboratory findings. 2. No ureteral stone or ureteral dilatation or renal stone is seen. 3. No additional abnormality is seen on noncontrast CT study of the abdomen and pelvis other than slight increased stool within the colon. Diagnostic code #3 This report was dictated in [place] Standard Time I agree with preliminary report from [facility], finalized on 05/11/19, 10:44 PM Central Time
== END 2019-05-11 22:58 | disposition home or self-care (01) ==
LOC: JD.ED 19:43
DX: N12 Tubulo-interstitial nephritis, not specified as acute or chronic (principal); F17.210 Nicotine dependence, cigarettes, uncomplicated; Z88.8 Allergy status to other drugs, medicaments and biological substances
CPT/HCPCS: 36415; 74176; 80053; 81001; 83735; 85007; 85027; 87086; 87186; 87804; 93005; 96374; 99284; A9270; J1885; 93010; 99283

== ENCOUNTER 2019-07-15 17:32 | Emergency (ER) | payer MEDICAID ==
[2019-07-15 18:04] VITALS: BP 134/81; PULSE 65
--- NOTE | 2019-07-15 19:37 | EDM.PDOC ---
ED HPI GENERAL MEDICAL PROBLEM - General Chief Complaint: Genitourinary Problem Stated Complaint: KIDNEY PAIN Time Seen by Provider: 07/15/19 19:00 Source of Information: Reports: Patient History Limitations: Reports: Other (Patient unfamiliar with details of her PMHx - says "I don't know" a lot, generalizes) - History of Present Illness INITIAL COMMENTS - FREE TEXT/NARRATIVE: Mrs. Van is a pleasant 34-year-old woman with a past medical history significant for kidney stones and ureteral reflux with frequent urinary tract infections, anxiety, complex regional pain syndrome and fibromyalgia, on no medications whatsoever, who now presents to the ED stating that she has been experiencing bilateral flank pain, worse on the left than the right, for the past 2 weeks. She has had a nonproductive cough, bilateral ear pain, and a subjective fever for about a week. She developed a sore throat yesterday. She has had pain under both of her ribs, anterior and posterior, worse on the left than the right, since 10 AM today. This is causing her to have dyspnea. She denies dysuria, but states that she has had urinary frequency. No recent nausea , vomiting, constipation, or diarrhea. The patient states that whenever she has had symptoms like this in the past, she has always been diagnosed with a UTI or pyelonephritis. The patient states that she took DayQuil yesterday, only, which did not help. No other medicines over the past 2 weeks, and she has not seen any other providers about these issues. Here in the ED, the patient is found to be hemodynamically stable, afebrile, saturating 100% on room air. The patient states that she saw SUZE Fuller, as a PCP, once, years ago. She does not recall the name of her Head Grinder. She does not recall the name of her Urologist. She does not recall the name of her Reception Agent. She did not receive an influenza vaccine this season, and declined an offer to receive one here today. Bilateral Lower Back Pain Score (Numeric/FACES): 8 - Related Data Allergies Allergy/AdvReac Type Severity Reaction Status Date / Time diphenhydramine HCl Allergy Other Verified 07/15/19 18:05 [From Benadryl] orphenadrine Allergy Other Verified 07/15/19 18:05 propoxyphene napsylate Allergy Other Verified 07/15/19 18:05 [From Darvocet-N] valdecoxib Allergy Other Verified 07/15/19 18:05 acetaminophen AdvReac Other Verified 07/15/19 18:05 [From Darvocet-N] Home Meds: Home Meds . [No Known Home Meds] 07/15/19 [History] Past Medical History HEENT History: Reports: Impaired Vision Other HEENT History: wears glasses Respiratory History: Reports: Asthma (not tested) Gastrointestinal History: Reports: Colon Polyp Genitourinary History: Reports: Renal Calculus, Other (See Below) (Ureteral reflux) Neurological History: Reports: Other (See Below) (The patient does not have a seizure disorder) Psychiatric History: Reports: Anxiety, Other (See Below) (Fibromyalgia, complex regional pain syndrome) Endocrine/Metabolic History: Reports: Diabetes, Gestational Hematologic History: Reports: Blood Transfusion(s) - Past Surgical History HEENT Surgical History: Reports: Oral Surgery (wisdom teeth extraction), Tonsillectomy GI Surgical History: Reports: Colonoscopy (x 3, with polypectomy), EGD (x 2 or 3 ) Female Surgical History: Reports: D&C (x 1), Tubal Ligation, Ureteral Stent ( x 3 or 4) Musculoskeletal Surgical History: Reports: Arthroscopic Knee (right), Shoulder Surgery (right, biceps tendon repair), Other (See Below) (Left elbow repair) Social & Family History - Family History Family Medical History: Noncontributory - Tobacco Use Smoking Status *Q: Current Every Day Smoker Years of Tobacco use: 21 Packs/Tins Daily: 0.5 Packs/Tins Daily Comment: Down from 1 ppd - Caffeine Use Caffeine Use: Reports: Coffee, Energy Drinks, Soda, Tea Caffeine Use Comment: Not every day - Alcohol Use Alcohol Use History: Yes Alcohol Use Frequency: Socially - Recreational Drug Use Recreational Drug Use: No - Living Situation & Occupation Living situation: Reports: (in process of ), with Family (4 kids) Occupation: Employed ([employer]) ED ROS GENERAL - Review of Systems Review Of Systems: Comprehensive ROS is negative, except as noted in HPI. ED EXAM, GENERAL - Physical Exam Exam: See Below Exam Limited By: No Limitations General Appearance: Alert, WD/WN, No Apparent Distress Eye Exam: Bilateral Eye: EOMI, Normal Inspection Ears: Normal External Exam, Normal Canal, Hearing Grossly Normal, Normal TMs Nose: Normal Inspection, Normal Mucosa, No Blood Throat/Mouth: Normal Inspection, Normal Lips, Normal Teeth, Normal Gums, Normal Oropharynx, Normal Voice, No Airway Compromise Head: Atraumatic, Normocephalic Neck: Normal Inspection, Supple, Non-Tender, Full Range of Motion. No: Lymphadenopathy (L), Lymphadenopathy (R) Respiratory/Chest: No Respiratory Distress, Lungs Clear, Normal Breath Sounds, No Accessory Muscle Use. No: Decreased Breath Sounds, Crackles, Rhonchi, Wheezing, Stridor, Prolonged Expiration Cardiovascular: Normal Peripheral Pulses, Regular Rate, Rhythm, No Edema, No Gallop, No JVD, No Murmur, No Rub Peripheral Pulses: 4+: Radial (L), Radial (R) GI/Abdominal: Normal Bowel Sounds, Soft, Non-Tender, No Organomegaly, No Distention, No Abnormal Bruit, No Mass (Female) Exam: Deferred Rectal (Female) Exam: Deferred Back Exam: Normal Inspection, Full Range of Motion, CVA Tenderness (L), CVA Tenderness (R) Extremities: Normal Inspection, Normal Range of Motion, No Pedal Edema, Normal Capillary Refill Neurological: Alert, Oriented, Normal Cognition, No Motor/Sensory Deficits Psychiatric: Normal Affect Skin Exam: Warm, Dry, Intact, Normal Color, No Rash Course - Vital Signs Last Recorded V/S: Last Vital Signs Temp 37.1 C 07/15/19 17:56 Pulse 65 07/15/19 17:56 Resp 18 07/15/19 17:56 BP 134/81 07/15/19 17:56 Pulse Ox 100 07/15/19 17:56 - Orders/Labs/Meds Orders: Active Orders 24 hr Category Date Time Status CULTURE STREP A CONFIRMATION [RM] Stat Lab 07/15/19 19:21 Results STREP SCRN A RAPID W CULT CONF [RM] Stat Lab 07/15/19 19:21 Results Isolation [COMM] Routine Oth 07/15/19 19:32 Ordered Labs: Laboratory Tests 07/15/19 07/15/19 07/15/19 Range/Units 18:05 20:00 20:00 WBC 8.78 (3.98-10.04) K/mm3 RBC 4.68 (3.98-5.22) M/mm3 Hgb 14.3 D (11.2-15.7) gm/dl Hct 44.0 (34.1-44.9) % MCV 94.0 D (79.4-94.8) fl MCH 30.6 (25.6-32.2) pg MCHC 32.5 (32.2-35.5) g/dl RDW Std Deviation 48.1 H (36.4-46.3) fL Plt Count 288 (182-369) K/mm3 MPV 10.7 (9.4-12.3) fl Neutrophils % (Manual) 47 (40-60) % Band Neutrophils % 0 (0-10) % Lymphocytes % (Manual) 49 H (20-40) % Atypical Lymphs % 0 % Monocytes % (Manual) 3 (2-10) % Eosinophils % (Manual) 0 L (0.7-5.8) % Basophils % (Manual) 1 (0.1-1.2) Platelet Estimate Adequate Plt Morphology Comment Normal RBC Morph Comment Normal D-Dimer, Quantitative (0.19-0.50) mg/L Sodium 142 (136-145) mEq/L Potassium 3.8 (3.5-5.1) mEq/L Chloride 107 (98-107) mEq/L Carbon Dioxide 25 (21-32) mEq/L Anion Gap 13.8 (5-15) BUN 13 (7-18) mg/dL Creatinine 0.9 (0.55-1.02) mg/dL Est Cr Clr Drug Dosing 84.03 mL/min Estimated GFR (MDRD) > 60 (>60) mL/min BUN/Creatinine Ratio 14.4 (14-18) Glucose 91 (74-106) mg/dL Calcium 9.1 (8.5-10.1) mg/dL Total Bilirubin 0.3 (0.2-1.0) mg/dL AST 12 L (15-37) U/L ALT 21 (14-59) U/L Alkaline Phosphatase 67 (46-116) U/L C-Reactive Protein < 0.2 (<1.0) mg/dL Total Protein 7.0 (6.4-8.2) g/dl Albumin 4.0 (3.4-5.0) g/dl Globulin 3.0 gm/dL Albumin/Globulin Ratio 1.3 (1-2) Urine Color Yellow (Yellow) Urine Appearance Clear (Clear) Urine pH 7.0 (5.0-8.0) Ur Specific Rigby 1.025 (1.005-1.030) Urine Protein Negative (Negative) Urine Glucose (UA) Negative (Negative) Urine Ketones Negative (Negative) Urine Occult Blood Negative (Negative) Urine Nitrite Negative (Negative) Urine Bilirubin Negative (Negative) Urine Urobilinogen 0.2 (0.2-1.0) Ur Leukocyte Esterase Negative (Negative) Urine RBC 0-5 (0-5) /hpf Urine WBC 0-5 (0-5) /hpf Ur Squamous Epith Cells 10-20 H (0-5) /hpf Urine Bacteria Not seen (FEW) /hpf Urine Mucus Not seen (FEW) /hpf 07/15/19 Range/Units 20:00 WBC (3.98-10.04) K/mm3 RBC (3.98-5.22) M/mm3 Hgb (11.2-15.7) gm/dl Hct (34.1-44.9) % MCV (79.4-94.8) fl MCH (25.6-32.2) pg MCHC (32.2-35.5) g/dl RDW Std Deviation (36.4-46.3) fL Plt Count (182-369) K/mm3 MPV (9.4-12.3) fl Neutrophils % (Manual) (40-60) % Band Neutrophils % (0-10) % Lymphocytes % (Manual) (20-40) % Atypical Lymphs % % Monocytes % (Manual) (2-10) % Eosinophils % (Manual) (0.7-5.8) % Basophils % (Manual) (0.1-1.2) Platelet Estimate Plt Morphology Comment RBC Morph Comment D-Dimer, Quantitative 0.36 (0.19-0.50) mg/L Sodium (136-145) mEq/L Potassium (3.5-5.1) mEq/L Chloride (98-107) mEq/L Carbon Dioxide (21-32) mEq/L Anion Gap (5-15) BUN (7-18) mg/dL Creatinine (0.55-1.02) mg/dL Est Cr Clr Drug Dosing mL/min Estimated GFR (MDRD) (>60) mL/min BUN/Creatinine Ratio (14-18) Glucose (74-106) mg/dL Calcium (8.5-10.1) mg/dL Total Bilirubin (0.2-1.0) mg/dL AST (15-37) U/L ALT (14-59) U/L Alkaline Phosphatase (46-116) U/L C-Reactive Protein (<1.0) mg/dL Total Protein (6.4-8.2) g/dl Albumin (3.4-5.0) g/dl Globulin gm/dL Albumin/Globulin Ratio (1-2) Urine Color (Yellow) Urine Appearance (Clear) Urine pH (5.0-8.0) Ur Specific Rigby (1.005-1.030) Urine Protein (Negative) Urine Glucose (UA) (Negative) Urine Ketones (Negative) Urine Occult Blood (Negative) Urine Nitrite (Negative) Urine Bilirubin (Negative) Urine Urobilinogen (0.2-1.0) Ur Leukocyte Esterase (Negative) Urine RBC (0-5) /hpf Urine WBC (0-5) /hpf Ur Squamous Epith Cells (0-5) /hpf Urine Bacteria (FEW) /hpf Urine Mucus (FEW) /hpf - Re-Assessments/Exams Free Text/Narrative Re-Assessment/Exam: 07/15/19 19:34 As above, the patient's primary concern is of bilateral flank pain for the past 2 weeks, however, she also has URI symptoms including a cough, dyspnea, subjective fever, sore throat, and ear pain. While the patient coughed several times in my presence, her physical exam is benign. I hear no crackles or wheezes on auscultation of her lungs, and she is afebrile, saturating 100% on room air. The patient's nurse collected a urinalysis, which found only 10-20 squamous epithelial cells, and is otherwise completely normal, which essentially rules out a UTI or pyelonephritis. I have ordered a work-up that includes blood work, including a D-dimer, a chest x-ray, a rapid strep test, and an influenza swab. 07/15/19 20:15 Two-view chest radiograph reviewed. The cardiac silhouette is within normal limits. No pulmonary vascular congestion. No pleural effusions. No focal infiltrate. No pneumothorax. There is hyperinflation and mild bilateral diaphragmatic flattening, consistent with COPD. Formal read per the Radiologist pending. 07/15/19 21:42 The patient's CBC is unremarkable. Her CMP is unremarkable. Her CRP is <0.2. Her D-dimer is within normal limits at 0.36. Her influenza swab returned negative. Her rapid strep test is negative. 07/15/19 22:15 Test results discussed with the patient and her boyfriend (now present). 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 I explained to the patient that most viral URIs last around 12 days, with the worst of the symptoms in the first 5 to 7 days, then taper after that. As pain from CRPS and fibromyalgia are chronic, I believe it would be a grave disservice to the patient to start her on opioids. I will therefore recommend that she take ibuprofen as needed for her discomfort (she reports an allergy to acetaminophen). Departure - Departure Time of Disposition: 22:16 Disposition: Home, Self-Care 01 Condition: Good Clinical Impression: Viral URI with cough - Discharge Information *PRESCRIPTION DRUG MONITORING PROGRAM REVIEWED*: Not Applicable *COPY OF PRESCRIPTION DRUG MONITORING REPORT IN PATIENT JOYCE: Not Applicable Instructions: Upper Respiratory Infection, Adult, [id number] Referrals: Eleanor Roman PA-C [Primary Care Provider] - Forms: ED Department Discharge Additional Instructions: You were seen in the emergency room for flank pain on both sides, pain under your ribs on both sides, a cough, possible fever, sore throat, and ear pain. Work-up in the ER included blood work, a urinalysis, an influenza swab, a rapid strep test, and a chest x-ray. Your entire work-up was unremarkable. You do not have a urinary tract infection or kidney infection. You do not have influenza or strep throat. You do not have pneumonia. Based on your history, physical exam, and ER test, you are most likely suffering from a viral URI with cough. Unfortunately, there are no medicines to treat a viral URI - it will have to run its course. As discussed, we recommend that you not take any [id number] cough or cold remedies, as they have been shown to be of no benefit, but do have side effects , such as an upset stomach. We recommend you take [id number] Tylenol or ibuprofen as needed for discomfort, and stay adequately hydrated. If any other problems, please do not hesitate to return to the ER. Sepsis Event Note - Evaluation Sepsis Screening Result: No Definite Risk - Focused Exam Vital Signs: Vital Signs Temp Pulse Resp BP Pulse Ox 07/15/19 17:56 37.1 C 65 18 134/81 100 Date Exam was Performed: 07/16/19 Time Exam was Performed: 03:12 - My Orders Last 24 Hours: My Active Orders 07/15/19 19:21 CULTURE STREP A CONFIRMATION [RM] Stat STREP SCRN A RAPID W CULT CONF [RM] Stat 07/15/19 19:32 Isolation [COMM] Routine - Assessment/Plan Last 24 Hours: My Active Orders 07/15/19 19:21 CULTURE STREP A CONFIRMATION [RM] Stat STREP SCRN A RAPID W CULT CONF [RM] Stat 07/15/19 19:32 Isolation [COMM] Routine
--- NOTE | 2019-07-15 20:16 | CR ---
Chest: PA and lateral views chest were obtained. Comparison: Prior chest x-ray of 11/28/10. Heart size and mediastinum are within normal limits. Lungs are clear with no acute parenchymal change. Bony structures appear within normal limits. Impression: 1. Nothing acute is appreciated on 2 view chest x-ray. Diagnostic code #1 Study was dictated in MDT
== END 2019-07-15 22:25 | disposition home or self-care (01) ==
LOC: JD.ED 17:32
DX: J06.9 Acute upper respiratory infection, unspecified (principal); J45.909 Unspecified asthma, uncomplicated; F17.210 Nicotine dependence, cigarettes, uncomplicated; Z88.8 Allergy status to other drugs, medicaments and biological substances
CPT/HCPCS: 36415; 71046; 71046-26; 80053; 81001; 85007; 85027; 85379; 86140; 87081; 87430; 87804; 99283-25

== ENCOUNTER 2019-07-20 12:55 | Emergency (ER) | payer MEDICAID ==
[2019-07-20 13:06] VITALS: BP 123/91; PULSE 97
[2019-07-20] MEDS ORDERED: Sodium Chloride 0.9% 10 ML Syringe FLUSH PRN (13:44)
[2019-07-20] MEDS ORDERED: Sodium Chloride 0.9% 1,000 ML IV ONE (13:45)
[2019-07-20] MEDS ORDERED: Ondansetron 4 MG/2 ML SDV IVPUSH ONE (13:45)
--- NOTE | 2019-07-20 13:49 | EDM.PDOC ---
ED HPI GENERAL MEDICAL PROBLEM - General Chief Complaint: General Stated Complaint: VOMITING AND DIARRHEA Time Seen by Provider: 07/20/19 13:23 Source of Information: Reports: Patient, RN Notes Reviewed History Limitations: Reports: No Limitations - History of Present Illness INITIAL COMMENTS - FREE TEXT/NARRATIVE: Patient is a 34-year-old female presents to the ED for the evaluation of some ongoing symptoms. She notes that she has been having an increase in nausea/ vomiting/diarrhea. But she states for the last 3 weeks she has not been feeling well. She states that her boyfriend did come back from [place], and she told us that he was told he had influenza A but was never tested. The patient states that she has been having fevers, diarrhea, nausea, vomiting, generalized body aches, dry intermittent cough, chest discomfort, sore throat and kidney pain. She states that her kidney pain is worse than her normal pain that she experiences. She had a pretty extensive work-up around 1 week ago and nothing was found to be a problem. Patient try to call the [facility] for evaluation, but they directed her here for possible coronavirus testing due to the length and severity of her symptoms. Patient states that her temperature at home was 102 to 104 F, but she has a temperature of 97.7 F in the ER. Her O2 sats are 96% on room air, she is not tachypneic, nor is she tachycardic. Blood pressure is within normal limits at 123/91. Generalized Pain Score (Numeric/FACES): 9 - Related Data Allergies Allergy/AdvReac Type Severity Reaction Status Date / Time diphenhydramine HCl Allergy Other Verified 07/20/19 13:06 [From Benadryl] orphenadrine Allergy Other Verified 07/20/19 13:06 propoxyphene napsylate Allergy Other Verified 07/20/19 13:06 [From Darvocet-N] valdecoxib Allergy Other Verified 07/20/19 13:06 acetaminophen AdvReac Other Verified 07/20/19 13:06 [From Darvocet-N] Home Meds: Home Meds . 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: Musculoskeletal History: Reports: Other (See Below) Other Musculoskeletal History: CRPS Neurological History: Reports: Other (See Below) Other Neuro History: tremors with anesthesia Psychiatric History: Reports: Anxiety Endocrine/Metabolic History: Reports: Diabetes, Gestational, Obesity/BMI 30+ Hematologic History: Reports: Blood Transfusion(s) Other Hematologic History: blood transfusion 14 years ago due to retained placenta - Past Surgical History HEENT Surgical History: Reports: Oral Surgery, Tonsillectomy GI Surgical History: Reports: Colonoscopy, EGD Female Surgical History: Reports: D&C, Tubal Ligation, Ureteral Stent Musculoskeletal Surgical History: Reports: Arthroscopic Knee, Shoulder Surgery, Other (See Below) Social & Family History - Family History Family Medical History: Noncontributory - Tobacco Use Smoking Status *Q: Current Every Day Smoker Years of Tobacco use: 22 Packs/Tins Daily: 0.5 - Caffeine Use Caffeine Use: Reports: Coffee, Energy Drinks, Soda, Tea Caffeine Use Comment: Not every day - Recreational Drug Use Recreational Drug Use: No - Living Situation & Occupation Living situation: Reports: (in process of ), with Family (4 kids) Occupation: Employed ([employer]) ED ROS GENERAL - Review of Systems Review Of Systems: See Below Constitutional: Reports: Fever (subjective, high at home, afebrile here), Malaise, Fatigue, Decreased Appetite Respiratory: Reports: Cough. Denies: Shortness of Breath, Sputum Cardiovascular: Reports: Chest Pain (chest discomfort) GI/Abdominal: Reports: Diarrhea, Nausea, Vomiting. Denies: Black Stool, Bloody Stool : Reports: Other (bilateral kidney pain). Denies: Dysuria Neurological: Reports: Dizziness ED EXAM, GENERAL - Physical Exam Exam: See Below Exam Limited By: No Limitations General Appearance: Alert, WD/WN, No Apparent Distress Eye Exam: Bilateral Eye: EOMI, Normal Inspection, PERRL Ears: Normal External Exam Nose: Normal Inspection Throat/Mouth: Normal Inspection, Normal Lips, Normal Teeth, Normal Gums, Normal Oropharynx, Normal Voice, No Airway Compromise Head: Atraumatic, Normocephalic Neck: Normal Inspection Respiratory/Chest: No Respiratory Distress, Lungs Clear, Normal Breath Sounds, No Accessory Muscle Use, Chest Non-Tender Cardiovascular: Normal Peripheral Pulses, Regular Rate, Rhythm, No Murmur Peripheral Pulses: 3+: Radial (L), Radial (R) GI/Abdominal: Normal Bowel Sounds, Soft, No Distention, No Mass, Tender ( generalized) Back Exam: Normal Inspection, CVA Tenderness (L), CVA Tenderness (R) Extremities: Normal Inspection, Normal Capillary Refill Neurological: Alert, Oriented, Normal Cognition, No Motor/Sensory Deficits Psychiatric: Normal Affect, Normal Mood Skin Exam: Warm, Dry, Intact, Normal Color, No Rash Course - Vital Signs Last Recorded V/S: Last Vital Signs Temp 97.7 F 07/20/19 13:02 Pulse 97 07/20/19 13:02 Resp 16 07/20/19 13:02 BP 123/91 H 07/20/19 13:02 Pulse Ox 96 07/20/19 13:02 - Orders/Labs/Meds Orders: Active Orders 24 hr Category Date Time Status Peripheral IV Care [RC] . DIRECTED Care 07/20/19 13:44 Active Sodium Chloride 0.9% [Saline Flush] Med 07/20/19 13:44 Active 10 ml FLUSH ASDIRECTED PRN Isolation [COMM] Routine Oth 07/20/19 13:45 Ordered Peripheral IV Insertion Adult [OM.PC] Stat Oth 07/20/19 13:44 Ordered Medication Orders Sodium Chloride (Saline Flush) 10 ml FLUSH ASDIRECTED PRN PRN Reason: Keep Vein Open Last Admin: 07/20/19 14:01 Dose: 10 ml Labs: Laboratory Tests 07/20/19 07/20/19 07/20/19 Range/Units 13:50 13:50 14:04 WBC 9.51 (3.98-10.04) K/mm3 RBC 4.71 (3.98-5.22) M/mm3 Hgb 14.5 (11.2-15.7) gm/dl Hct 43.7 (34.1-44.9) % MCV 92.8 (79.4-94.8) fl MCH 30.8 (25.6-32.2) pg MCHC 33.2 (32.2-35.5) g/dl RDW Std Deviation 47.7 H (36.4-46.3) fL Plt Count 265 (182-369) K/mm3 MPV 10.5 (9.4-12.3) fl Neutrophils % (Manual) 82 H (40-60) % Band Neutrophils % 0 (0-10) % Lymphocytes % (Manual) 11 L (20-40) % Atypical Lymphs % 0 % Monocytes % (Manual) 6 (2-10) % Eosinophils % (Manual) 1 (0.7-5.8) % Basophils % (Manual) 0 L (0.1-1.2) Platelet Estimate Adequate RBC Morph Comment Normal Sodium 140 (136-145) mEq/L Potassium 3.7 (3.5-5.1) mEq/L Chloride 104 (98-107) mEq/L Carbon Dioxide 23 (21-32) mEq/L Anion Gap 16.7 H (5-15) BUN 18 (7-18) mg/dL Creatinine 1.0 (0.55-1.02) mg/dL Est Cr Clr Drug Dosing 72.81 mL/min Estimated GFR (MDRD) > 60 (>60) mL/min BUN/Creatinine Ratio 18.0 (14-18) Glucose 115 H (74-106) mg/dL Calcium 8.5 (8.5-10.1) mg/dL Total Bilirubin 0.7 (0.2-1.0) mg/dL AST 14 L (15-37) U/L ALT 22 (14-59) U/L Alkaline Phosphatase 59 (46-116) U/L Total Protein 6.7 (6.4-8.2) g/dl Albumin 3.6 (3.4-5.0) g/dl Globulin 3.1 gm/dL Albumin/Globulin Ratio 1.2 (1-2) Urine Color Yellow (Yellow) Urine Appearance Clear (Clear) Urine pH 6.0 (5.0-8.0) Ur Specific [place] > or = 1.030 (1.005-1.030) Urine Protein Negative (Negative) Urine Glucose (UA) Negative (Negative) Urine Ketones Negative (Negative) Urine Occult Blood 1+ H (Negative) Urine Nitrite Negative (Negative) Urine Bilirubin 1+ H (Negative) Urine Urobilinogen 0.2 (0.2-1.0) Ur Leukocyte Esterase Negative (Negative) Urine RBC 5-10 H (0-5) /hpf Urine WBC 0-5 (0-5) /hpf Ur Squamous Epith Cells 0-5 (0-5) /hpf Urine Bacteria Few (FEW) /hpf Urine Mucus Few (FEW) /hpf Meds: Medications Generic Name Dose Route Start Last Admin Trade Name Freq PRN Reason Stop Dose Admin Sodium Chloride 10 ml 07/20/19 13:44 07/20/19 14:01 Saline Flush FLUSH 10 ml ASDIRECTED PRN Administration Keep Vein Open Discontinued Medications Generic Name Dose Route Start Last Admin Trade Name Freq PRN Reason Stop Dose Admin Sodium Chloride 1,000 mls @ 999 mls/hr 07/20/19 13:45 07/20/19 14:01 Normal Saline IV 07/20/19 14:45 999 mls/hr ONETIME ONE Administration Ondansetron HCl 4 mg 07/20/19 13:45 07/20/19 14:01 Zofran IVPUSH 07/20/19 13:46 4 mg ONETIME ONE Administration - Re-Assessments/Exams Free Text/Narrative Re-Assessment/Exam: 07/20/19 13:50 Patient presents to the ED for her multiple general complaints. I will do some repeat labs to include CBC, CMP, urinalysis, she will get IV with some IV fluids and 4 mg Zofran. Influenza swab will also be repeated. If this is negative, we will entertain the thought of testing her for coronavirus. 07/20/19 15:11 Patient's laboratory evaluation is unremarkable. Influenza swab was negative. Urinalysis demonstrates some blood in the urine, but no active signs of infection. At this time we will test the patient for coronavirus for ongoing illness, although is highly likely that is another virus that is continuing to hang on. Departure - Departure Time of Disposition: 15:18 Disposition: Home, Self-Care 01 Condition: Fair Clinical Impression: Viral URI with cough - Discharge Information *PRESCRIPTION DRUG MONITORING PROGRAM REVIEWED*: No *COPY OF PRESCRIPTION DRUG MONITORING REPORT IN PATIENT JOYCE: No Instructions: Viral Respiratory Infection, [id number] Referrals: Eleanor Roman PA-C [Primary Care Provider] - Forms: ED Department Discharge Additional Instructions: You were evaluated in in the ER today for your ongoing cold-like symptoms. Your influenza screen was negative again at today's visit, and your laboratory evaluation demonstrates no other focal abnormalities. Your urine shows no sign of infection at this time. You were given a bag IV fluids for symptomatic management. You were tested for coronavirus at today's visit, unfortunately we will not have results for another 24 to 48 hours, as this is a send out test and needs to be tested in [employer] [facility] directly. They run 2 batches daily, and our test do not get sent out until 2:30 PM on a regular daily basis. You will be called and made notified if they are positive or negative when we receive these results. Please increase your fluid intake. Get plenty of rest as well. As with any illness, please try to limit your exposure to others to help mitigate the spread of germs. Please also remember to wash your hands after you cough/ sneeze. Please try to limit touching your face, and then touching other surfaces. Recommend that you take some [id number] nasal decongestants, cough/cold remedies to combat this. You may take 500mg Tylenol (acetaminophen) or 600mg Advil/Motrin (ibuprofen) every 6 hours as needed for further pain/fever relief. Do not exceed 4000 mg Tylenol or 3200 mg ibuprofen in a 24-hour time span. If you have high blood pressure, medications like Coricidin would be adequate to use. It is the [facility] recommendation that you self quarantine, for at least 7 days or until symptoms have improved without medications, or unless you are told otherwise, when you were called with the results of your coronavirus testing. Please return to the ED if your symptoms change or worsen. Sepsis Event Note - Evaluation Sepsis Screening Result: No Definite Risk - Focused Exam Vital Signs: Vital Signs Temp Pulse Resp BP Pulse Ox 07/20/19 13:02 97.7 F 97 16 123/91 H 96 Date Exam was Performed: 07/20/19 Time Exam was Performed: 15:11 - My Orders Last 24 Hours: My Active Orders 07/20/19 13:44 Peripheral IV Care [RC] . DIRECTED Sodium Chloride 0.9% [Saline Flush] 10 ml FLUSH ASDIRECTED PRN Peripheral IV Insertion Adult [OM.PC] Stat 07/20/19 13:45 Isolation [COMM] Routine - Assessment/Plan Last 24 Hours: My Active Orders 07/20/19 13:44 Peripheral IV Care [RC] . DIRECTED Sodium Chloride 0.9% [Saline Flush] 10 ml FLUSH ASDIRECTED PRN Peripheral IV Insertion Adult [OM.PC] Stat 07/20/19 13:45 Isolation [COMM] Routine
== END 2019-07-20 15:35 | disposition home or self-care (01) ==
LOC: JD.ED 12:55
DX: J06.9 Acute upper respiratory infection, unspecified (principal); F17.210 Nicotine dependence, cigarettes, uncomplicated; Z88.8 Allergy status to other drugs, medicaments and biological substances
CPT/HCPCS: 36415; 80053; 81001; 85007; 85027; 87804; 96361; 96374; 99284; J2405; J7030; U0001; 99283

== ENCOUNTER 2020-11-25 18:24 | Emergency (ER) | payer MEDICAID ==
[2020-11-25] MEDS ORDERED: Sodium Chloride 0.9% 1,000 ML IV ONE (19:12)
[2020-11-25] MEDS ORDERED: Sodium Chloride 0.9% 10 ML Syringe FLUSH PRN (19:12)
[2020-11-25] MEDS ORDERED: Ondansetron 4 MG/2 ML SDV IVPUSH ONE (19:13)
[2020-11-25] MEDS ORDERED: HYDROmorphone 0.5 MG/0.5 ML Syringe IVPUSH ONE (19:13)
--- NOTE | 2020-11-25 20:50 | CT ---
CT abdomen and pelvis Technique: Multiple axial sections were obtained from above the dome of the diaphragm inferiorly through the pubic symphysis. Intravenous contrast and oral contrast were not utilized. Study has been performed as a ureteral stone protocol. Comparison: Prior CT abdomen and pelvis exam of 05/11/19. Findings: Right and left kidneys show no abnormal calcifications. No hydronephrosis is seen. No abnormal calcifications are seen along the course of the ureters. Visualized lung bases show nothing acute. Noncontrast appearance of the liver shows no focal abnormality. Spleen size is normal. Gallbladder contains no calcified gallstones. Adrenal glands show no nodule. Pancreas appears within normal limits. Abdominal aorta shows no aneurysm. No retroperitoneal adenopathy or mesenteric abnormalities are seen. Appendix is seen which is normal. No pelvic mass or adenopathy is seen. Slight increased stool is seen within the right and transverse colon. No small bowel dilatation is seen. Bone window settings were reviewed which shows no acute osseous abnormality. Impression: 1. No renal calculi, ureteral dilatation or ureteral stone is seen. 2. Mild increased stool within the colon. 3. No additional abnormality is appreciated on noncontrast CT study of the abdomen and pelvis. Diagnostic code #2
[2020-11-25] MEDS ORDERED: Magnesium Citrate Solution 296 ML Bottle PO ONE (20:58)
--- NOTE | 2020-11-25 21:05 | EDM.PDOC ---
ED HPI GENERAL MEDICAL PROBLEM - General Chief Complaint: Genitourinary Problem Stated Complaint: FLANK PAIN Time Seen by Provider: 11/25/20 18:39 Source of Information: Reports: Patient History Limitations: Reports: No Limitations - History of Present Illness INITIAL COMMENTS - FREE TEXT/NARRATIVE: 35-year-old female presents the emergency department with complaints of left fl ank pain that radiates around her abdomen and into her groin. She also complains of urinary frequency and irritation. The patient states that she has a significant history of kidney stones and ureteral reflux with frequent urinary tract infections, complex regional pain syndrome and fibromyalgia. She states that she has had left flank pain that started about 2 days ago. She states she took a bunch of oxybutynin and Pyridium thinking that she had a urinary tract infection which is progressing to pyelonephritis. She also is questioning whether or not she has a kidney stone. She states that yesterday she had difficulty voiding and now today she has frequency and urgency however has not had any urinary incontinence. She denies any recent fever, chills, nausea, vomiting or diarrhea. She states she normally has a bowel movement daily. She has not had any headache or flulike symptoms. She states that she has CRPS and sees a doctor at [facility] for her kidney issues. Her primary care provider is Eleanor Roman. Left Lower Back Pain Score (Numeric/FACES): 9 - Related Data Allergies Allergy/AdvReac Type Severity Reaction Status Date / Time diphenhydramine HCl Allergy Other Verified 11/25/20 18:41 [From Benadryl] orphenadrine Allergy Other Verified 11/25/20 18:41 propoxyphene napsylate Allergy Other Verified 11/25/20 18:41 [From Darvocet-N] valdecoxib Allergy Other Verified 11/25/20 18:41 acetaminophen AdvReac Other Verified 11/25/20 18:41 [From Darvocet-N] Home Meds: Home Meds . 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 [employer] History: Reports: Musculoskeletal History: Reports: Other (See Below) Other Musculoskeletal History: CRPS Neurological History: Reports: Other (See Below) Other Neuro History: tremors with anesthesia Psychiatric History: Reports: Anxiety Endocrine/Metabolic History: Reports: Diabetes, Gestational, Obesity/BMI 30+ Hematologic History: Reports: Blood Transfusion(s) Other Hematologic History: blood transfusion 14 years ago due to retained p lacenta Immunologic History: Reports: None Oncologic (Cancer) History: Reports: None Dermatologic History: Reports: None - Infectious Disease History Infectious Disease History: Reports: None - Past Surgical History HEENT Surgical History: Reports: Oral Surgery, Tonsillectomy GI Surgical History: Reports: Colonoscopy, EGD Female Surgical History: Reports: D&C, Tubal Ligation, Ureteral Stent Musculoskeletal Surgical History: Reports: Arthroscopic Knee, Shoulder Surgery, Other (See Below) Social & Family History - Family History Family Medical History: No Pertinent Family History - Tobacco Use Tobacco Use Status *Q: Current Every Day Tobacco User Years of Tobacco use: 30 Packs/Tins Daily: 0.5 - Caffeine Use Caffeine Use: Reports: Coffee, Energy Drinks, Soda, Tea Caffeine Use Comment: Not every day - Recreational Drug Use Recreational Drug Use: No - Living Situation & Occupation Living situation: Reports: (in process of ), with Family (4 kids) Occupation: Employed ([employer]) ED ROS GENERAL - Review of Systems Review Of Systems: Comprehensive ROS is negative, except as noted in HPI. ED EXAM, RENAL/ - Physical Exam Exam: See Below Exam Limited By: No Limitations General Appearance: Alert, WD/WN, Mild Distress Ears: Normal External Exam, Hearing Grossly Normal Nose: Normal Inspection Throat/Mouth: Normal Inspection, Normal Lips, Normal Voice, No Airway Compromise Head: Atraumatic Neck: Normal Inspection, Supple, Non-Tender, Full Range of Motion Respiratory/Chest: No Respiratory Distress, Lungs Clear, Normal Breath Sounds, No Accessory Muscle Use, Chest Non-Tender Cardiovascular: Normal Peripheral Pulses, Regular Rate, Rhythm, No Edema, No Murmur GI/Abdominal: Normal Bowel Sounds, Soft, Non-Tender, No Distention (Female) Exam: Deferred Rectal (Female) Exam: Deferred Back Exam: Normal Inspection, Full Range of Motion Neurological: Alert, Oriented, Normal Cognition Psychiatric: Normal Affect, Normal Mood Skin Exam: Warm, Dry, Intact, Normal Color, No Rash Lymphatic: No Adenopathy Course - Vital Signs Text/Narrative:: Upon assessment patient states she has 10 out of 10 left flank pain. She is complaining that she has urinary frequency. She is requesting that I place a Ruiz catheter in her. However at this time I am not going to do that. Her vital signs are stable at this time and she is afebrile. I have ordered labs to include a CBC, CMP, CRP, urinalysis with micro and culture if indicated. I have also ordered a CT of the abdomen and pelvis without contrast, stone protocol, to rule out kidney stone. Last Recorded V/S: Last Vital Signs Temp 97.3 F 11/25/20 18:38 Pulse 79 11/25/20 18:38 Resp 16 11/25/20 18:38 BP 144/98 H 11/25/20 18:38 Pulse Ox 99 11/25/20 18:38 - Orders/Labs/Meds Orders: Active Orders 24 hr Category Date Time Status CULTURE URINE [MREF] Stat Lab 11/25/20 18:35 Received Sodium Chloride 0.9% [Saline Flush] Med 11/25/20 19:12 Active 10 ml FLUSH ASDIRECTED PRN Saline Lock Insert [OM.PC] Stat Oth 11/25/20 19:12 Ordered Medication Orders Sodium Chloride (Sodium Chloride 0.9% 10 Ml Syringe) 10 ml FLUSH ASDIRECTED PRN PRN Reason: Keep Vein Open Last Admin: 11/25/20 19:57 Dose: 10 ml Documented by: TWIN Labs: Laboratory Tests 11/25/20 11/25/20 11/25/20 Range/Units 18:35 19:25 19:25 WBC 9.87 (3.98-10.04) K/mm3 RBC 4.26 (3.98-5.22) M/mm3 Hgb 13.2 (11.2-15.7) gm/dl Hct 40.2 (34.1-44.9) % MCV 94.4 (79.4-94.8) fl MCH 31.0 (25.6-32.2) pg MCHC 32.8 (32.2-35.5) g/dl RDW Std Deviation 44.1 (36.4-46.3) fL Plt Count 278 (182-369) K/mm3 MPV 10.0 (9.4-12.3) fl Neut % (Auto) 67.1 (34.0-71.1) % Lymph % (Auto) 23.3 (19.3-51.7) % [place] % (Auto) 7.9 (4.7-12.5) % Eos % (Auto) 1.1 (0.7-5.8) Baso % (Auto) 0.3 (0.1-1.2) % Neut # (Auto) 6.62 H (1.56-6.13) K/mm3 Lymph # (Auto) 2.30 (1.18-3.74) K/mm3 [place] # (Auto) 0.78 H (0.24-0.36) K/mm3 Eos # (Auto) 0.11 (0.04-0.36) K/mm3 Baso # (Auto) 0.03 (0.01-0.08) K/mm3 Sodium 142 (136-145) mEq/L Potassium 3.9 (3.5-5.1) mEq/L Chloride 105 (98-107) mEq/L Carbon Dioxide 29 (21-32) mEq/L Anion Gap 11.9 (5-15) BUN 14 (7-18) mg/dL Creatinine 1.0 (0.55-1.02) mg/dL Est Cr Clr Drug Dosing 74.90 mL/min Estimated GFR (MDRD) > 60 (>60) mL/min BUN/Creatinine Ratio 14.0 (14-18) Glucose 96 (70-99) mg/dL Calcium 8.4 L (8.5-10.1) mg/dL Total Bilirubin 0.3 (0.2-1.0) mg/dL AST 12 L (15-37) U/L ALT 21 (14-59) U/L Alkaline Phosphatase 52 (46-116) U/L C-Reactive Protein < 0.2 (<1.0) mg/dL Total Protein 6.4 (6.4-8.2) g/dl Albumin 3.7 (3.4-5.0) g/dl Globulin 2.7 gm/dL Albumin/Globulin Ratio 1.4 (1-2) Urine Color Yellow (Yellow) Urine Appearance Slt cloudy H (Clear) Urine pH 7.0 (5.0-8.0) Ur Specific [place] 1.020 (1.005-1.030) Urine Protein Trace H (Negative) Urine Glucose (UA) Negative (Negative) Urine Ketones Negative (Negative) Urine Occult Blood Trace-intact H (Negative) Urine Nitrite Negative (Negative) Urine Bilirubin Negative (Negative) Urine Urobilinogen 0.2 (0.2-1.0) Ur Leukocyte Esterase 1+ H (Negative) Urine RBC 50-75 H (0-5) /hpf Urine WBC 0-5 (0-5) /hpf Ur Squamous Epith Cells 0-5 (0-5) /hpf Amorphous Sediment Many H (NOT SEEN) /hpf Urine Bacteria Few (FEW) /hpf Urine Mucus Not seen (FEW) /hpf Meds: Medications Generic Name Dose Route Start Last Admin Trade Name Penelope PRN Reason Stop Dose Admin Sodium Chloride 10 ml 11/25/20 19:12 11/25/20 19:57 Sodium Chloride 0.9% 10 Ml Syringe FLUSH 10 ml ASDIRECTED PRN Administration Keep Vein Open Discontinued Medications Generic Name Dose Route Start Last Admin Trade Name Penelope PRN Reason Stop Dose Admin Hydromorphone HCl 0.5 mg 11/25/20 19:13 11/25/20 19:59 Hydromorphone 0.5 Mg/0.5 Ml Syringe IVPUSH 11/25/20 19:14 0.5 mg ONETIME ONE Administration Sodium Chloride 1,000 mls @ 999 mls/hr 11/25/20 19:12 11/25/20 19:59 Normal Saline IV 11/25/20 20:12 999 mls/hr ONETIME ONE Administration Magnesium Citrate 296 ml 11/25/20 20:58 Magnesium Citrate Solution 296 Ml Bottle PO 11/25/20 20:59 ONETIME ONE Ondansetron HCl 4 mg 11/25/20 19:13 11/25/20 19:58 Ondansetron 4 Mg/2 Ml Sdv IVPUSH 11/25/20 19:14 4 mg ONETIME ONE Administration - Re-Assessments/Exams Free Text/Narrative Re-Assessment/Exam: 11/25/20 21:11 Hematology is essentially unremarkable Chemistry is unremarkable other than a calcium of 8.4, AST of 12 ALT of 21, C- reactive protein less than 0.2 Urinalysis reveals a trace of protein, trace of intact occult blood, urine nitrite negative, leukocyte Estrace 1+, urine RBC 50-75, urine WBC 0-5, urine squamous epithelial cells 0-5, urine bacteria few, urine mucus not seen. 11/25/20 21:[address] of the abdomen and pelvis: Right and left kidneys show no abnormal calcifications. No hydronephrosis is seen. No abnormal calcifications are seen along the course of the ureters. Visualized lung bases show nothing acute. Noncontrast appearance of the liver shows no focal abnormality. Spleen size is normal. Gallbladder contains no calcified gallstones. Adrenal glands show no nodule. Pancreas appears within normal limits. Abdominal aorta shows no aneurysm. No retroperitoneal adenopathy or mesenteric abnormalities are seen. Appendix is seen which is normal. No pelvic mass or adenopathy is seen. Slight increase stool is seen within the right and transverse colon. No small bowel dilation is seen. Bone window settings were reviewed which show no acute osseous abnormality. Impression: 1. No renal calculi, ureteral dilation or ureteral stone is seen. 2. Mild increased stool within the colon. 3. No additional abnormality is appreciated on noncontrast CT study of the abdomen pelvis. Discussed the findings with the patient. I have ordered for her to receive a half bottle of magnesium citrate while in the emergency department and have the other half sent home with her. If she does not have a bowel movement within 3 hours she is to drink the remainder of the bottle and she will likely have a bowel movement by morning. Also recommend that she start taking MiraLAX 1 scoop daily for the next 2 weeks as she now admits that she does have a history of being seen in the emergency department in the past and told that she had a moderate amount of stool in her colon. Departure - Departure Time of Disposition: 21:16 Disposition: Home, Self-Care 01 Condition: Good Clinical Impression: Constipation Qualifiers: Constipation type: slow transit constipation Qualified Code(s): K59.01 - Slow transit constipation - Discharge Information Instructions: Constipation, Adult, [id number] Referrals: Eleanor Roman PA-C [Primary Care Provider] - Forms: ED Department Discharge Additional Instructions: You were seen in the emergency department with complaints of left flank pain. Labs were completed which were essentially unremarkable. Urinalysis was also essentially unremarkable. There are no signs or symptoms of infection. CT scan was completed which did not show kidney stone or kidney infection. Your CT scan however did show increased stool in your colon. Your abdominal/flank pain is likely due to constipation. You were given one half bottle of magnesium citrate while in the emergency department. If you do not have a bowel movement within the next 3 hours you will need to drink the remainder of the bottle and you should have a good bowel movement by morning. Recommend that you take 1 scoop of MiraLAX daily for the next 2 weeks. Drink plenty of fluids. Follow-up with your primary care provider in about a week for reevaluation. Should your condition worsen or change, do not hesitate returning to the emergency department. Sepsis Event Note (ED) - Evaluation Sepsis Screening Result: No Definite Risk - Focused Exam Vital Signs: Vital Signs Temp Pulse Resp BP Pulse Ox 11/25/20 18:38 97.3 F 79 16 144/98 H 99 - My Orders Last 24 Hours: My Active Orders 11/25/20 18:35 CULTURE URINE [MREF] Stat 11/25/20 19:12 Sodium Chloride 0.9% [Saline Flush] 10 ml FLUSH ASDIRECTED PRN Saline Lock Insert [OM.PC] Stat - Assessment/Plan Last 24 Hours: My Active Orders 11/25/20 18:35 CULTURE URINE [MREF] Stat 11/25/20 19:12 Sodium Chloride 0.9% [Saline Flush] 10 ml FLUSH ASDIRECTED PRN Saline Lock Insert [OM.PC] Stat
[2020-11-25 22:30] VITALS: BP 119/82; PULSE 74
== END 2020-11-25 21:49 | disposition home or self-care (01) ==
LOC: JD.ED 18:24
DX: K59.01 Slow transit constipation (principal); E66.9 Obesity, unspecified; Z68.29 Body mass index [BMI] 29.0-29.9, adult; Z88.6 Allergy status to analgesic agent; Z88.8 Allergy status to other drugs, medicaments and biological substances; Z72.0 Tobacco use
CPT/HCPCS: 36415; 74176; 80053; 81001; 85025; 86140; 87086; 87088; 87186; 96374; 96375; 99284; A9270; J1170; J2405; J7030

== ENCOUNTER 2021-02-16 13:29 | Emergency (ER) | payer MEDICAID ==
[2021-02-16 14:04] VITALS: BP 136/91; PULSE 90
[2021-02-16] MEDS ORDERED: cefTRIAXone 2 GM in Sodium Chloride 0.9% 100 ML IV ONE (14:19)
--- NOTE | 2021-02-16 14:19 | EDM.PDOC ---
ED HPI GENERAL MEDICAL PROBLEM - General Chief Complaint: Genitourinary Problem Stated Complaint: KIDNEY ISSUE Time Seen by Provider: 02/16/21 14:12 Source of Information: Reports: Patient History Limitations: Reports: No Limitations - History of Present Illness INITIAL COMMENTS - FREE TEXT/NARRATIVE: 36-year-old female presents to the ED with suspected urinary tract infection. This is been a recurrent and chronic problem for her. She has had the lower portion of her left kidney resected the [facility] in the past due to chronic infected. Apparently she had a urinalysis done in the clinic a week ago which was positive for blood and bacteria but she was never placed on antibiotics and her provider is away at this point time. She has fibromyalgia syndrome and feels that her symptoms are worse due to infection. Questionable low-grade fever no severe chills. Quite significant pain and discomfort primarily in the left flank versus the right. Decreased appetite with nausea no vomiting. No true dysuria. She does have frequency and urgency. Onset: Gradual Onset Date: 02/07/21 Duration: Day(s):, Getting Worse Location: Reports: Back (Lateral flank pain left worse than right) Quality: Reports: Ache Severity: Moderate Improves with: Reports: None Worsens with: Reports: None Context: Denies: Activity, Exercise, Lifting, Sick Contact, Trauma, Other Associated Symptoms: Reports: Loss of Appetite, Malaise, Nausea/Vomiting. 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 Left Flank Pain Score (Numeric/FACES): 6 - Related Data Allergies Allergy/AdvReac Type Severity Reaction Status Date / Time diphenhydramine HCl Allergy Other Verified 02/16/21 14:10 [From Benadryl] orphenadrine Allergy Other Verified 02/16/21 14:10 propoxyphene napsylate Allergy Other Verified 02/16/21 14:10 [From Darvocet-N] valdecoxib Allergy Other Verified 02/16/21 14:10 acetaminophen AdvReac Other Verified 02/16/21 14:10 [From Darvocet-N] Home Meds: Home Meds Cefdinir [Omnicef] 300 mg PO BID #16 cap 02/16/21 [Rx] Past Medical History HEENT History: Reports: Impaired Vision Other HEENT History: wears glasses Cardiovascular History: Reports: Other (See Below) Other Cardiovascular History: history of mitral valve issues Respiratory History: Reports: Asthma Gastrointestinal History: Reports: Colon Polyp Other Gastrointestinal History: bloating, colon polyps Genitourinary History: Reports: Pyelonephritis, Renal Calculus, Other (See Below) Other Genitourinary History: 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: Musculoskeletal History: Reports: Other (See Below) Other Musculoskeletal History: CRPS Neurological History: Reports: Other (See Below) Other Neuro History: tremors with anesthesia Psychiatric History: Reports: Anxiety Endocrine/Metabolic History: Reports: Diabetes, Gestational, Obesity/BMI 30+ Hematologic History: Reports: Blood Transfusion(s) Other Hematologic History: blood transfusion 14 years ago due to retained placenta Immunologic History: Reports: None Oncologic (Cancer) History: Reports: None Dermatologic History: Reports: None - Infectious Disease History Infectious Disease History: Reports: None - Past Surgical History HEENT Surgical History: Reports: Oral Surgery, Tonsillectomy GI Surgical History: Reports: Colonoscopy, EGD Female Surgical History: Reports: D&C, Tubal Ligation, Ureteral Stent Musculoskeletal Surgical History: Reports: Arthroscopic Knee, Shoulder Surgery, Other (See Below) Social & Family History - Family History Family Medical History: No Pertinent Family History - Caffeine Use Caffeine Use: Reports: Coffee, Energy Drinks, Soda, Tea Caffeine Use Comment: Not every day - Living Situation & Occupation Living situation: Reports: (in process of ), with Family (4 kids) Occupation: Employed ([employer]) [facility] [employer] [facility] - Review of Systems Review Of Systems: See Below Constitutional: Reports: Chills, Malaise, Weakness, Fatigue, Decreased Appetite. Denies: Fever, Weight Loss HEENT: Reports: No Symptoms Respiratory: Reports: No Symptoms Cardiovascular: Reports: No Symptoms Endocrine: Reports: Fatigue : Reports: Flank Pain (Lateral flank pain worse on the left side as compared to the right), Frequency, Urgency. Denies: Dysuria Musculoskeletal: Reports: Muscle Pain (Generalized musculoskeletal pain due to fibromyalgia syndrome) Skin: Reports: No Symptoms Neurological: Reports: No Symptoms Psychiatric: Reports: No Symptoms Hematologic/Lymphatic: Reports: No Symptoms Immunologic: Reports: No Symptoms ED EXAM, RENAL/ - Physical Exam Exam: See Below Exam Limited By: No Limitations General Appearance: Alert, WD/WN, Mild Distress, Other (Temperature is 36.7 degrees. Heart rate 90 and sinus respiratory is 20 with O2 sats of 98% room air BP is 136/91.) Eye Exam: Bilateral Eye: Normal Inspection (No blepharal pallor or scleral icterus.), PERRL Respiratory/Chest: No Respiratory Distress, Lungs Clear, Normal Breath Sounds, No Accessory Muscle Use, Respiratory Distress (Mild tachypnea but lungs are clear) Cardiovascular: Normal Peripheral Pulses, Regular Rate, Rhythm, No Edema, No Gallop, No Murmur, No Rub GI/Abdominal: Normal Bowel Sounds, No Organomegaly, Pelvis Stable, Tender (Under both upper quadrants under under the costal margins bilaterally.). No: Guarding, Rigid, Rebound Back Exam: CVA Tenderness (L) (Moderate), CVA Tenderness (R) Extremities: Normal Inspection (Mild), Normal Range of Motion, Non-Tender, No Pedal Edema Neurological: Alert, CN II-XII Intact, Normal Cognition Psychiatric: Anxious Skin Exam: Warm, Dry, Intact, Normal Color, No Rash Course - Vital Signs Last Recorded V/S: Last Vital Signs Temp 36.7 C 02/16/21 13:56 Pulse 90 02/16/21 13:56 Resp 20 02/16/21 13:56 BP 136/91 H 02/16/21 13:56 Pulse Ox 98 02/16/21 13:56 - Orders/Labs/Meds Orders: Active Orders 24 hr Category Date Time Status Peripheral IV Care [RC] . DIRECTED Care 02/16/21 14:21 Active CULTURE URINE [MREF] Stat Lab 02/16/21 15:10 Ordered Sodium Chloride 0.9% [Saline Flush] Med 02/16/21 14:21 Active 10 ml FLUSH ASDIRECTED PRN Peripheral IV Insertion Adult [OM.PC] Stat Oth 02/16/21 14:21 Ordered Medication Orders Sodium Chloride (Sodium Chloride 0.9% 10 Ml Syringe) 10 ml FLUSH ASDIRECTED PRN PRN Reason: Keep Vein Open Last Admin: 02/16/21 14:46 Dose: 10 ml Documented by: MUELEVA Labs: Laboratory Tests 02/16/21 02/16/21 02/16/21 Range/Units 14:10 14:30 14:30 WBC 7.99 (3.98-10.04) K/mm3 RBC 5.14 (3.98-5.22) M/mm3 Hgb 15.4 D (11.2-15.7) gm/dl Hct 47.8 H (34.1-44.9) % MCV 93.0 (79.4-94.8) fl MCH 30.0 (25.6-32.2) pg MCHC 32.2 (32.2-35.5) g/dl RDW Std Deviation 44.0 (36.4-46.3) fL Plt Count 292 (182-369) K/mm3 MPV 10.5 (9.4-12.3) fl Neut % (Auto) 66.5 (34.0-71.1) % Lymph % (Auto) 26.7 (19.3-51.7) % [place] % (Auto) 5.5 (4.7-12.5) % Eos % (Auto) 0.6 L (0.7-5.8) Baso % (Auto) 0.4 (0.1-1.2) % Neut # (Auto) 5.32 (1.56-6.13) K/mm3 Lymph # (Auto) 2.13 (1.18-3.74) K/mm3 [place] # (Auto) 0.44 H (0.24-0.36) K/mm3 Eos # (Auto) 0.05 (0.04-0.36) K/mm3 Baso # (Auto) 0.03 (0.01-0.08) K/mm3 Sodium 141 (136-145) mEq/L Potassium 3.4 L (3.5-5.1) mEq/L Chloride 104 (98-107) mEq/L Carbon Dioxide 31 (21-32) mEq/L Anion Gap 9.4 (5-15) BUN 16 (7-18) mg/dL Creatinine 0.9 (0.55-1.02) mg/dL Est Cr Clr Drug Dosing 82.42 mL/min Estimated GFR (MDRD) > 60 (>60) mL/min BUN/Creatinine Ratio 17.8 (14-18) Glucose 89 (70-99) mg/dL Calcium 9.2 (8.5-10.1) mg/dL Total Bilirubin 0.6 (0.2-1.0) mg/dL AST 12 L (15-37) U/L ALT 14 (14-59) U/L Alkaline Phosphatase 52 (46-116) U/L C-Reactive Protein <0.2 (<1.0) mg/dL Total Protein 7.5 (6.4-8.2) g/dl Albumin 4.2 (3.4-5.0) g/dl Globulin 3.3 gm/dL Albumin/Globulin Ratio 1.3 (1-2) Urine Color Yellow (Yellow) Urine Appearance Slt cloudy H (Clear) Urine pH 5.5 (5.0-8.0) Ur Specific [place] > or = 1.030 (1.005-1.030) Urine Protein Negative (Negative) Urine Glucose (UA) Negative (Negative) Urine Ketones Trace H (Negative) Urine Occult Blood Trace-intact H (Negative) Urine Nitrite Negative (Negative) Urine Bilirubin Negative (Negative) Urine Urobilinogen 0.2 (0.2-1.0) Ur Leukocyte Esterase Trace H (Negative) Urine RBC 0-5 (0-5) /hpf Urine WBC 0-5 (0-5) /hpf Ur Epithelial Cells 0-5 (0-5) /hpf Urine Bacteria Moderate H (FEW) /hpf Urine Mucus Few (FEW) /hpf Meds: Medications Generic Name Dose Route Start Last Admin Trade Name Freq PRN Reason Stop Dose Admin Sodium Chloride 10 ml 02/16/21 14:21 02/16/21 14:46 Sodium Chloride 0.9% 10 Ml Syringe FLUSH 10 ml ASDIRECTED PRN Administration Keep Vein Open Discontinued Medications Generic Name Dose Route Start Last Admin Trade Name Freq PRN Reason Stop Dose Admin Ceftriaxone Sodium 2 gm/ 100 mls @ 200 mls/hr 02/16/21 14:19 02/16/21 14:35 Sodium Chloride IV 02/16/21 14:48 200 mls/hr ONETIME ONE Administration - Radiology Interpretation Free Text/Narrative:: 36-year-old female presents to the ED for evaluation of bilateral flank pain left worse than the right. She states she is prone to recurrent urinary tract infections and has had the lower half of her left kidney resected at the [facility] years ago due to severe infection. Apparently she had a urinalysis done at the clinic i.e. [facility] a week ago which contained blood and bacteria but she was never phoned back with the results of the culture and was never started on antibiotics. Since then her symptoms have worsened. Clinically she does have left costovertebral angle tenderness and mild right sided CVA tenderness as well. Plan urinalysis. Routine labs to be done including CRP. She is afebrile and therefore blood cultures will not be ordered. Plan will be to give her Rocephin 2 g IV. I did offer the patient analgesia but because of her multiple allergies she opted not to have anything at this time. - Re-Assessments/Exams Free Text/Narrative Re-Assessment/Exam: 02/16/21 14:58 Count is normal at 7.99. The differential shows 66.5% neutrophils on the auto differential. Hemoglobin is 15.4 with hematocrit of 47.8. Platelet count 292,000. The urinalysis is slightly cloudy with trace of ketones trace of occult blood trace of leukocyte esterase with the micro pending. 02/16/21 15:10 Micro on the urine shows 0-5 red blood cells 0-5 WBCs and moderate bacteria. Urine culture will be obtained. Departure - Departure Time of Disposition: 15:11 Disposition: Home, Self-Care 01 Condition: Fair Clinical Impression: Bilateral flank pain, Recurrent urinary tract infection, Pyelonephritis - Discharge Information *PRESCRIPTION DRUG MONITORING PROGRAM REVIEWED*: Not Applicable *COPY OF PRESCRIPTION DRUG MONITORING REPORT IN PATIENT JOYCE: Not Applicable Prescriptions: Cefdinir [Omnicef] 300 mg PO BID #16 cap Instructions: Urinary Tract Infection, Adult, Flank Pain, Adult, [id number] Referrals: Eleanor Roman PA-C [Primary Care Provider] - Forms: ED Department Discharge Additional Instructions: Evaluation in the emergency room today in regards to bilateral flank pain worse on the left side as compared to the right. Reported his previous resection of the lower pole of the left kidney surgically in the past. History of recurrent urinary tract infections. Today's urinalysis shows plenty of bacteria and a small amount of blood. Very few white blood cells identified. You were treated with intravenous antibiotic Rocephin 2 g and will need to take oral antibiotic Omnicef 300 mg twice daily for the next days to clear up infection completely. Plenty of fluids. Pain medication as necessary. Expect improvement over the next 48 to 72 hours. Sepsis Event Note (ED) - Evaluation Sepsis Screening Result: No Definite Risk - Focused Exam Vital Signs: Vital Signs Temp Pulse Resp BP Pulse Ox 02/16/21 13:56 36.7 C 90 20 136/91 H 98 - My Orders Last 24 Hours: My Active Orders 02/16/21 14:21 Peripheral IV Care [RC] . DIRECTED Sodium Chloride 0.9% [Saline Flush] 10 ml FLUSH ASDIRECTED PRN Peripheral IV Insertion Adult [OM.PC] Stat 02/16/21 15:10 CULTURE URINE [MREF] Stat - Assessment/Plan Last 24 Hours: My Active Orders 02/16/21 14:21 Peripheral IV Care [RC] . DIRECTED Sodium Chloride 0.9% [Saline Flush] 10 ml FLUSH ASDIRECTED PRN Peripheral IV Insertion Adult [OM.PC] Stat 02/16/21 15:10 CULTURE URINE [MREF] Stat
[2021-02-16] MEDS ORDERED: Sodium Chloride 0.9% 10 ML Syringe FLUSH PRN (14:21)
== END 2021-02-16 15:26 | disposition home or self-care (01) ==
LOC: JD.ED 13:29
DX: N12 Tubulo-interstitial nephritis, not specified as acute or chronic (principal); N39.0 Urinary tract infection, site not specified; Z88.8 Allergy status to other drugs, medicaments and biological substances
CPT/HCPCS: 36415; 80053; 81001; 85025; 86140; 87086; 96374; 99284; J0696